=== PATIENT | female | born 1985 | race African-American/Black ===

== ENCOUNTER 2016-08-12 18:58 | Emergency (ER) | payer MEDICAID, OTHER ==
--- NOTE | 2016-08-12 19:11 | ER Document Report ---
ED Medical Screen (RME) - General Chief Complaint: Psych Problem Stated Complaint: IVC PAPER WORK Time seen by provider: 19:09 Mode of Arrival: Ambulatory Information source: Patient Notes: 31 yo female presents to ed for psych problems. Has IVC paper work that she is a danger to herself. TRAVEL OUTSIDE OF THE [place] IN LAST 30 DAYS: No - HPI Onset: Other Onset/Duration: Gradual Quality of pain: No pain Severity: None Pain Level: Denies Associated Symptoms: None Exacerbated by: Denies Relieved by: Denies Similar symptoms previously: Yes Recently seen / treated by doctor: Yes - Related Data Smoking: Cigarettes - 4-5 daily Frequency of alcohol use: None Drug Abuse: None Allergies/Adverse Reactions: lithium [[place]] Allergy (Mild, Verified 10/01/15 07:11) swollen lymph nodes fluphenazine enanthate [From Prolixin] Allergy (Verified 10/01/15 07:11) fluphenazine HCl [From Prolixin] Allergy (Verified 10/01/15 07:11) Past Medical History - Past Medical History Cardiac Medical History: Reports: Hx Hypertension Denies: Hx Heart Attack Pulmonary Medical History: Denies: Hx Asthma, Hx Bronchitis, Hx COPD, Hx Pneumonia Neurological Medical History: Denies: Hx Cerebrovascular Accident, Hx Migraine, Hx Seizures Endocrine Medical History: Denies: Hx Diabetes Mellitus Type 1, Hx Diabetes Mellitus Type 2 Renal/ Medical History: Denies: Hx Ovarian Cysts Psychiatric Medical History: Reports: Hx Anxiety, Hx Bipolar Disorder, Hx Depression, Hx Schizophrenia Past Surgical History: Reports: Hx Dilation and Curettage - Therapeutic AB, Hx Gynecologic Surgery - D&C - Immunizations Immunizations up to date: No Hx Diphtheria, Pertussis, Tetanus Vaccination: No Physical Exam - Vital signs Vitals: Temp Pulse Resp BP Pulse Ox 97.7 F 102 H 16 140/82 H 98 08/12/16 19:06 08/12/16 19:06 08/12/16 19:06 08/12/16 19:06 08/12/16 19:06 Course - Vital Signs Vital signs: Temp Pulse Resp BP Pulse Ox 97.7 F 102 H 16 140/82 H 98 08/12/16 19:06 08/12/16 19:06 08/12/16 19:06 08/12/16 19:06 08/12/16 19:06
[2016-08-12 20:02] LABS: ABSOLUTE EOSINOPHILS # (AUTO) 0.1 10^3/uL (0.0-0.6); ABSOLUTE LYMPHOCYTES (AUTO) 2.9 10^3/uL (0.5-4.7); ABSOLUTE MONOCYTES (AUTO) 0.5 10^3/uL (0.1-1.4); ABSOLUTE NEUT (AUTO) 7.8 10^3/uL (1.7-8.2); BASOPHILS % (AUTO) 0.3 % (0-2); HEMATOCRIT 35.9 % (36.0-47.0); HEMOGLOBIN 12.1 g/dL (12.0-15.5); HGB HCT DIFFERENCE 0.4; LYMPHOCYTES % (AUTO) 25.5 % (13-45); MEAN CORPUSCULAR HEMOGLOBIN 29.8 pg (27.0-33.4); MEAN CORPUSCULAR HGB CONC 33.6 g/dL (32.0-36.0); MEAN CORPUSCULAR VOLUME 89 fl (80-97); MONOCYTES % (AUTO) 4.3 % (3-13); RED BLOOD COUNT 4.06 10^6/uL (3.72-5.28); RED CELL DISTRIBUTION WIDTH 13.6 % (11.5-14.0); SEGMENTED NEUTROPHILS % (AUTO) 68.9 % (42-78); WHITE BLOOD COUNT 11.4 10^3/uL (4.0-10.5)
[2016-08-12 20:11] LABS: APPEARANCE,URINE SLIGHTLY-CLOUDY; BILIRUBIN,URINE NEGATIVE (NEGATIVE); GLUCOSE, URINE NEGATIVE (NEGATIVE); KETONES,URINE NEGATIVE (NEGATIVE); LEUKOCYTE ESTERASE,URINE TRACE (NEGATIVE); NITRITE,URINE NEGATIVE (NEGATIVE); PROTEIN,URINE NEGATIVE (NEGATIVE); URINE SPECIFIC GRAVITY 1.031
[2016-08-12 20:16] LABS: URINE BARBITURATES SCREEN NEGATIVE; URINE METHADONE SCREEN NEGATIVE; URINE PHENCYCLIDINE SCREEN NEGATIVE
[2016-08-12 20:23] LABS: ALANINE AMINOTRANSFERASE 41 U/L (9-52); ALBUMIN 4.2 g/dL (3.5-5.0); ALKALINE PHOSPHATASE 84 U/L (38-126); ANION GAP 14 (5-19); ASPARTATE AMINO TRANSFERASE 43 U/L (14-36); BILIRUBIN,TOTAL 0.5 mg/dL (0.2-1.3); BLOOD UREA NITROGEN 10 mg/dL (7-20); CALCIUM 9.6 mg/dL (8.4-10.2); CARBON DIOXIDE 23 mmol/L (22-30); CHLORIDE 104 mmol/L (98-107); CREATININE RESULT 0.71 mg/dL (0.52-1.25); GLUCOSE 87 mg/dL (75-110); POTASSIUM 3.9 mmol/L (3.6-5.0); SODIUM 140.8 mmol/L (137-145); TOTAL PROTEIN 7.5 g/dL (6.3-8.2)
[2016-08-12 20:41] LABS: ALCOHOL < 10 mg/dL (NONE DETECTED)
[2016-08-12] MEDS ORDERED: DIPHENHYDRAMINE HCL 50 MG/ML VIAL IM ONE (21:37)
[2016-08-12] MEDS ORDERED: LORAZEPAM INJ 2 MG/1 ML VIAL IM ONE (21:37)
[2016-08-12] MEDS ORDERED: HALOPERIDOL LACTATE INJ 5 MG/1 ML VIAL IM ONE (21:37)
[2016-08-12] MEDS ORDERED: ACETAMINOPHEN 325 MG TABLET PO ONE (22:22)
--- NOTE | 2016-08-13 03:11 | ER Document Report ---
ED General - General Chief Complaint: Psych Problem Stated Complaint: IVC PAPER WORK Mode of Arrival: Ambulatory Cannot obtain history due to: Uncooperative, Altered mental status Notes: Patient is a 31-year-old female who presents on IVC after apparently presenting to [facility] agitated, confused and stated that she needed to be checked out for vaginal bleeding with although patient is not . 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 She denies any suicidal or homicidal ideation. However, she does have persistent threatening posture while in the emergency department and is noted to be standing in her doorway the entire time during exam and prior to actual assessment. TRAVEL OUTSIDE OF THE [place] IN LAST 30 DAYS: No - Related Data Allergies/Adverse Reactions: lithium [Aldrich] Allergy (Mild, Verified 10/01/15 07:11) swollen lymph nodes fluphenazine enanthate [From Prolixin] Allergy (Verified 10/01/15 07:11) fluphenazine HCl [From Prolixin] Allergy (Verified 10/01/15 07:11) Home Medications: Current Home Medications Aripiprazole [Abilify Maintena] 400 mg IM ASDIR PRN 08/13/16 [History] Past Medical History - General Information source: Patient - Social History Smoking Status: Current Every Day Smoker Frequency of alcohol use: None Drug Abuse: None Lives with: Alone Family History: Reviewed & Not Pertinent Patient has suicidal ideation: No Patient has homicidal ideation: No - Past Medical History Cardiac Medical History: Reports: Hx Hypertension Denies: Hx Heart Attack Pulmonary Medical History: Denies: Hx Asthma, Hx Bronchitis, Hx COPD, Hx Pneumonia Neurological Medical History: Denies: Hx Cerebrovascular Accident, Hx Migraine, Hx Seizures Endocrine Medical History: Denies: Hx Diabetes Mellitus Type 1, Hx Diabetes Mellitus Type 2 Renal/ Medical History: Denies: Hx Ovarian Cysts Psychiatric Medical History: Reports: Hx Anxiety, Hx Bipolar Disorder, Hx Depression, Hx Schizophrenia Past Surgical History: Reports: Hx Dilation and Curettage - Therapeutic AB, Hx Gynecologic Surgery - D&C - Immunizations Immunizations up to date: No Hx Diphtheria, Pertussis, Tetanus Vaccination: No Review of Systems - Review of Systems -: Yes ROS unobtainable due to patient's medical condition Physical Exam - Vital signs Vitals: Temp Pulse Resp BP Pulse Ox 97.7 F 102 H 16 140/82 H 98 08/12/16 19:06 08/12/16 19:06 08/12/16 19:06 08/12/16 19:06 08/12/16 19:06 Interpretation: Tachycardic Notes: PHYSICAL EXAMINATION: GENERAL: Well-appearing, well-nourished and in no acute distress. HEAD: Atraumatic, normocephalic. EYES: Pupils equal round and reactive to light, extraocular movements intact, sclera anicteric, conjunctiva are normal. ENT: nares patent, oropharynx clear without exudates. Moist mucous membranes. NECK: Normal range of motion, supple without lymphadenopathy LUNGS: Breath sounds clear to auscultation bilaterally and equal. No wheezes rales or rhonchi. HEART: Regular rate and rhythm without murmurs ABDOMEN: Soft, nontender, normoactive bowel sounds. No guarding, no rebound. No masses appreciated. EXTREMITIES: Normal range of motion, no pitting or edema. No cyanosis. NEUROLOGICAL: No focal neurological deficits. Moves all extremities spontaneously and on command. PSYCH: Agitated, tangential thought process, various between being smiling and happy to crying and sobbing SKIN: Warm, Dry, normal turgor, no rashes or lesions noted. Course - Re-evaluation Re-evalutation: 08/13/16 03:12 Patient presents on IVC, acutely agitated and combative. She appears to be acutely psychotic at this time and although she initially did not present an immediate danger to herself or others, became progressively more agitated throughout her time in the emergency department, eventually requiring IM sedation for her safety as well as the safety of staff. Her medical screening exam laboratories are unremarkable. She will require assessment by psychiatry in the morning and I believe she may require hospitalization as she appears severely psychiatrically unstable at time of presentation. - Vital Signs Vital signs: Temp Pulse Resp BP Pulse Ox 97.9 F 94 14 135/77 H 99 08/12/16 20:08 08/12/16 20:08 08/12/16 20:08 08/12/16 20:08 08/12/16 20:08 - Laboratory Result Diagrams: 08/12/16 19:20 01/05/17 19:20 Laboratory results interpreted by me: 08/12/16 08/12/16 08/12/16 19:20 19:20 19:20 WBC 11.4 H Hct 35.9 L AST 43 H Urine Blood LARGE H Urine Urobilinogen 2.0 H Ur Leukocyte Esterase TRACE H Urine Ascorbic Acid 40 H Salicylates < 1.0 L Acetaminophen < 10 L - EKG Interpretation by Me Additional EKG results interpreted by me: 08/13/16 03:13 Normal sinus rhythm. Rate 98. No ST elevations or depressions. QTC 470. Discharge - Discharge Clinical Impression: Agitation Psychosis Qualifiers: Psychosis type: unspecified psychosis type Qualified Code(s): F29 - Unspecified psychosis not due to a substance or known physiological condition Condition: Fair Disposition: PSYCH HOSP/UNIT
[2016-08-13] MEDS ORDERED: ACETAMINOPHEN 325 MG TABLET PO ONE (04:36)
--- NOTE | 2016-08-13 05:09 | EKG REPORT ---
SEVERITY:- ABNORMAL ECG - SINUS RHYTHM PROBABLE LEFT ATRIAL ABNORMALITY PROBABLE LEFT VENTRICULAR HYPERTROPHY : Confirmed by: Ave Rivas 13-Aug-2016 05:09:05
--- NOTE | 2016-08-13 13:08 | ER Document Report ---
Doctor's Note Notes: 08/13/16 13:06 Patient is mildly agitated complaining that she does not need to be here and that many people over the years ago behind her back to have her brought in for psychiatric evaluations. This examiner she is denying suicidal or homicidal ideations or audiovisual hallucinations though she is Amer leading about the department staff had difficulty keeping her in her room. Patient is alert in no respiratory distress Skin warm and dry Speech clear obvious hallucinations Awaiting mental health evaluation
[2016-08-13] MEDS ORDERED: ZIPRASIDONE MESYLATE INJ/PF 20 MG SDV IM ONE (13:16)
--- NOTE | 2016-08-13 13:18 | ER Document Report ---
Doctor's Note Notes: 08/13/16 13:[address] Burger. Patient was given Geodon 20 mg IM now and An IVC papers. If she can be seen by her outpatient medical health provider today and she is calm or she can be discharged there today otherwise she will be kept here overnight as she is demonstrating some flight of ideas and impaired judgment
[2016-08-13] MEDS ORDERED: IBUPROFEN 800 MG TABLET PO ONE (17:17)
[2016-08-13 17:59] VITALS: BP 140/92
== END 2016-08-13 19:04 | disposition home or self-care (01) ==
LOC: ER 18:58
DX: F29 Unspecified psychosis not due to a substance or known physiological condition (principal); R45.1 Restlessness and agitation
CPT/HCPCS: 93005; 99285; 96372; 36415; 80307 ×4; 84702; 85025; 80053; 81001; 93010; J3490; J1200; J1630; J2060

== ENCOUNTER 2016-08-15 21:54 | Emergency (ER) | payer MEDICAID ==
[2016-08-15] MEDS ORDERED: HALOPERIDOL LACTATE INJ 5 MG/1 ML VIAL IM ONE (22:24)
[2016-08-15] MEDS ORDERED: LORAZEPAM INJ 2 MG/1 ML VIAL IM ONE (22:24)
[2016-08-15] MEDS ORDERED: DIPHENHYDRAMINE HCL 50 MG/ML VIAL IM ONE (22:24)
--- NOTE | 2016-08-15 22:25 | ER Document Report ---
ED General - General Chief Complaint: Psych Problem Stated Complaint: IVC WITH PAPERS Cannot obtain history due to: Mentally challenged, Uncooperative Notes: Patient is a 31-year-old female known to this emergency department who presents on IVC paperwork with the police. She is acutely psychotic, yelling at staff and security officers. Very agitated. She is an immediate danger to herself and staff and will require administration of IM sedation for her safety as well as the safety of staff. No additional meaningful history can be obtained from the patient although IVC paperwork filled out by her mother does note behaviors very similar for which patient was seen just several days ago including grandiose ideas, agitation, dangerous behavior, and paranoia. TRAVEL OUTSIDE OF THE [place] IN LAST 30 DAYS: No - Related Data Allergies/Adverse Reactions: lithium [[place]] Allergy (Mild, Verified 10/01/15 07:11) swollen lymph nodes fluphenazine enanthate [From Prolixin] Allergy (Verified 10/01/15 07:11) fluphenazine HCl [From Prolixin] Allergy (Verified 10/01/15 07:11) Past Medical History - General Information source: Law Enforcement - Social History Smoking Status: Never Smoker Frequency of alcohol use: None Drug Abuse: None Family History: Reviewed & Not Pertinent - Past Medical History Cardiac Medical History: Reports: Hx Hypertension Denies: Hx Heart Attack Pulmonary Medical History: Denies: Hx Asthma, Hx Bronchitis, Hx COPD, Hx Pneumonia Neurological Medical History: Denies: Hx Cerebrovascular Accident, Hx Migraine, Hx Seizures Endocrine Medical History: Denies: Hx Diabetes Mellitus Type 1, Hx Diabetes Mellitus Type 2 Renal/ Medical History: Denies: Hx Ovarian Cysts Psychiatric Medical History: Reports: Hx Anxiety, Hx Bipolar Disorder, Hx Depression, Hx Schizophrenia Past Surgical History: Reports: Hx Dilation and Curettage - Therapeutic AB, Hx Gynecologic Surgery - D&C - Immunizations Immunizations up to date: No Hx Diphtheria, Pertussis, Tetanus Vaccination: No Review of Systems - Review of Systems -: Yes ROS unobtainable due to patient's medical condition Physical Exam - Vital signs Vitals: Pulse Resp BP Pulse Ox 108 H 18 145/88 H 96 08/15/16 22:50 08/15/16 22:50 08/15/16 22:50 08/15/16 22:50 Interpretation: Tachycardic Notes: PHYSICAL EXAMINATION: Exam limited due to patient's behavior PHYSICAL EXAMINATION: GENERAL: Agitated and combative HEAD: Atraumatic, normocephalic. EYES: sclera anicteric, conjunctiva are normal. ENT: Moist mucous membranes. NECK: Normal range of motion LUNGS: Normal work of breathing HEART: 2+ radial pulses bilaterally EXTREMITIES: no pitting or edema. No cyanosis. NEUROLOGICAL: No focal neurological deficits. Moves all extremities spontaneously PSYCH: Yelling, hyperverbal, aggressive SKIN: Warm, Dry, normal turgor, no rashes or lesions noted. Course - Re-evaluation Re-evalutation: 08/16/16 04:25 Patient presents with symptoms consistent with acute psychosis similar to her prior presentations. It is difficult to obtain an appropriate history and the patient due to her psychiatric presentation. A basic medical screening exam does not demonstrate any acute findings and her laboratories are all likewise unremarkable. EKG unchanged from prior. IVC paperwork is already in place. She is medically cleared for evaluation by psychiatry in the morning. - Vital Signs Vital signs: Temp Pulse Resp BP Pulse Ox 108 H 18 145/88 H 96 08/15/16 22:50 08/15/16 22:50 08/15/16 22:50 08/15/16 22:50 - Laboratory Result Diagrams: 08/15/16 22:40 08/15/16 22:40 Laboratory results interpreted by me: 08/15/16 08/15/16 08/15/16 22:40 22:40 22:51 WBC 13.2 H Absolute Neutrophils 8.9 H Calcium 10.3 H AST 73 H Urine Blood SMALL H Salicylates < 1.0 L Acetaminophen < 10 L - EKG Interpretation by Me Additional EKG results interpreted by me: 08/16/16 04:26 Sinus tachycardia. Rate 109. No ST elevations or depressions. QTC 464. Discharge - Discharge Clinical Impression: Agitation Psychosis Qualifiers: Psychosis type: unspecified psychosis type Qualified Code(s): F29 - Unspecified psychosis not due to a substance or known physiological condition Condition: Fair Disposition: PSYCH HOSP/UNIT
[2016-08-15] MEDS ORDERED: HALOPERIDOL LACTATE INJ 5 MG/1 ML VIAL ONE (22:27)
[2016-08-15 22:56] LABS: ABSOLUTE BASOPHILS # (AUTO) 0.1 10^3/uL (0.0-0.2); ABSOLUTE EOSINOPHILS # (AUTO) 0.3 10^3/uL (0.0-0.6); ABSOLUTE LYMPHOCYTES (AUTO) 3.4 10^3/uL (0.5-4.7); ABSOLUTE MONOCYTES (AUTO) 0.6 10^3/uL (0.1-1.4); ABSOLUTE NEUT (AUTO) 8.9 10^3/uL (1.7-8.2); BASOPHILS % (AUTO) 0.5 % (0-2); HEMATOCRIT 36.9 % (36.0-47.0); HEMOGLOBIN 12.3 g/dL (12.0-15.5); LYMPHOCYTES % (AUTO) 25.9 % (13-45); MEAN CORPUSCULAR HEMOGLOBIN 29.3 pg (27.0-33.4); MEAN CORPUSCULAR HGB CONC 33.2 g/dL (32.0-36.0); MEAN CORPUSCULAR VOLUME 88 fl (80-97); MONOCYTES % (AUTO) 4.5 % (3-13); RED BLOOD COUNT 4.18 10^6/uL (3.72-5.28); RED CELL DISTRIBUTION WIDTH 13.4 % (11.5-14.0); SEGMENTED NEUTROPHILS % (AUTO) 67.1 % (42-78); WHITE BLOOD COUNT 13.2 10^3/uL (4.0-10.5)
[2016-08-15 23:07] LABS: APPEARANCE,URINE CLEAR; BILIRUBIN,URINE NEGATIVE (NEGATIVE); GLUCOSE, URINE NEGATIVE (NEGATIVE); KETONES,URINE NEGATIVE (NEGATIVE); LEUKOCYTE ESTERASE,URINE NEGATIVE (NEGATIVE); NITRITE,URINE NEGATIVE (NEGATIVE); PROTEIN,URINE NEGATIVE (NEGATIVE); URINE SPECIFIC GRAVITY 1.005; UROBILINOGEN,URINE NEGATIVE mg/dL (<2.0)
[2016-08-15 23:14] LABS: ALANINE AMINOTRANSFERASE 41 U/L (9-52); ALBUMIN 4.4 g/dL (3.5-5.0); ALCOHOL < 10 mg/dL (NONE DETECTED); ALKALINE PHOSPHATASE 82 U/L (38-126); ANION GAP 13 (5-19); ASPARTATE AMINO TRANSFERASE 73 U/L (14-36); BILIRUBIN,TOTAL 0.6 mg/dL (0.2-1.3); BLOOD UREA NITROGEN 12 mg/dL (7-20); CALCIUM 10.3 mg/dL (8.4-10.2); CARBON DIOXIDE 27 mmol/L (22-30); CHLORIDE 102 mmol/L (98-107); CREATININE RESULT 0.84 mg/dL (0.52-1.25); GLUCOSE 90 mg/dL (75-110); POTASSIUM 4.5 mmol/L (3.6-5.0); SODIUM 141.6 mmol/L (137-145); TOTAL PROTEIN 7.8 g/dL (6.3-8.2)
--- NOTE | 2016-08-16 08:53 | EKG REPORT ---
SEVERITY:- ABNORMAL ECG - SINUS TACHYCARDIA CONSIDER LEFT VENTRICULAR HYPERTROPHY : Confirmed by: Ave Rivas 16-Aug-2016 08:52:05
--- NOTE | 2016-08-16 09:23 | ER Document Report ---
Doctor's Note Notes: 08/16/16 09:23 Lab work vital signs have been reviewed. At this time patient is currently stable with no overnight events requiring no intervention at this time. Patient stable for transfer or other disposition
--- NOTE | 2016-08-16 11:13 | PSYCHOLOGICAL NOTE ---
Psych Note - Psych Note Psych Note: Patient states her mom took IVC out on her because she said that she was seeing angels and demons. She continued to disclose that this is not true. She continued to state that she can look into the eyes the pupils see if they're good or bad however never said that she is seeing angels and demons. She continued to disclose that she opened up to her parents and told them the truth and they could not take what she said. Patient will not elaborate on this. Patient continues to disclose feeling uncomfortable because being IVC in the hospital makes her feel like she is in snf; "this is insanity..... I can't keep doing this this place is insanity." Patient displayed extreme duress when told she would not be able to leave. She stated "you've broken my heart and rode my life. She continued to explain that she has plans and were trying to stop her from recording her song with "[place]." She continued to state that she just has to record this one song. 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 And explained that she is not manic she was misdiagnosed as bipolar in her 20s and she is just angry. Clinician spoke with Analia of [facility], she disclosed that the patient has been displaying hypomanic behavior since the end of May. She continued to disclose that previous to that they are actually in the process of ending services because she was stable and telling the provider that she did not want to continue engaging in services. She notes that the patient at that time appeared to be depressed and flat affect and would sit in the dark and her home however was caring for her child and engaging with her mother. She continues state she is concerned because the behavior the patient has been to displaying Clinician spoke with Freddie, Patient's DSS worker, she states she has noted bizarre behavior from patient. Stating patient gets upset and strips naked in public. She continued to state that while patient is constantly saying she wants her child, she never visits her mother to see if her. She continued to state that the patient is very transient and has not been able to do frequent visits with her because the patient just takes off. She continued disclosed the patient is adamant that she is going to record a record album and that the patient saying for her; DSS worker notes patient is not musically inclined. Patient is alert and orientated to person place time and circumstance. Mood is elevated with irritable affect. Patient denies suicidal and homicidal ideation. Patient denies auditory and visual hallucinations; mixed delusions of grandeur and religiosity are noted. Thought processes is disorganized. Conversational speech is pressured and at times loud. Eye contact was poor; patient has difficulty keeping her eyes open and is swaying on feet. Intellectual abilities appear to be within low average range. Attention and concentration are fair. Insight, judgment, impulse control are historically poor. 296.80 (F31.9) Unspecified Bipolar and Disorder Patient's presenting symptoms are congruent with not any bipolar disorder in cause clinically significant concerns in all 4 domains of her life. At this time, in this setting (ED) there is not enough information known to make you more specific diagnosis. Impression\\plan: Patient is recommended to continue under IVC and seek placement for inpatient treatment. Patient is presenting progressively worse. While her delusions do not cause harm to self or others the patient is demonstrating decreased ability for cognitive function. Insight, judgment, impulse control are currently impaired and she is a danger to herself. Dr. Burger was consulted on this patient; attending physician is in agreement with recommendations and disposition.
[2016-08-16] MEDS ORDERED: OLANZAPINE 5 MG TAB.RAPDIS PO SCH (11:45)
[2016-08-16] MEDS ORDERED: OLANZAPINE 5 MG TAB.RAPDIS PO ONE (11:45)
[2016-08-16] MEDS ORDERED: ARIPIPRAZOLE 5 MG TABLET PO SCH (12:00)
[2016-08-16] MEDS ORDERED: ARIPIPRAZOLE 5 MG TABLET PO ONE (12:00)
[2016-08-16] MEDS: ZIPRASIDONE HCL 20 MG CAPSULE PO SCH ×3 (12:22→23:03)
[2016-08-16] MEDS: ARIPIPRAZOLE 5 MG TABLET PO SCH (17:37)
[2016-08-16] MEDS: OLANZAPINE 5 MG TAB.RAPDIS PO SCH (17:38)
[2016-08-16] MEDS ORDERED: BENZTROPINE MESYLATE 1 MG TABLET PO SCH (22:00)
[2016-08-16] MEDS ORDERED: ACETAMINOPHEN 325 MG TABLET ONE (23:24)
[2016-08-17] MEDS ORDERED: IBUPROFEN 600 MG TABLET PO ONE (06:10)
[2016-08-17] MEDS: ZIPRASIDONE HCL 20 MG CAPSULE PO SCH ×2 (06:15→13:20)
[2016-08-17] MEDS: ARIPIPRAZOLE 5 MG TABLET PO SCH (09:55)
[2016-08-17] MEDS: OLANZAPINE 5 MG TAB.RAPDIS PO SCH (09:55)
--- NOTE | 2016-08-17 10:31 | ER Document Report ---
Doctor's Note Notes: 08/17/16 10:29 Rounds: Chart reviewed and patient interviewed. Patient has a history of bipolar disorder. She presented to this emergency department 2 days ago in an acute psychotic state she was very agitated. Patient is currently controlled, but hyper and anxious. Vital signs have been normal. Labs have been normal with the exception of a white count of 13,200, for which the patient has no symptoms of any infections to explain this probably clinically insignificant minor leukocytosis. Patient says that she routinely gets an injection of Abilify once a month and her most recent was on July 24. She says that's the only mental health medications she takes. We have started her on Geodon, Abilify, and Zyprexa. Patient appears to be medically stable for transfer or discharge. Martha Dunaway M.D.
[2016-08-17 15:11] VITALS: BP 134/79
--- NOTE | 2016-08-17 16:01 | PSYCHOLOGICAL NOTE ---
Psych Note - Psych Note Psych Note: Conducted check in with patient who is a 31 year old female under IVC at [facility] ED for bizarre/manic episode. Note, patient is known to this clinician and this Department for numerous prior episodes of similar etiology. Patient today was observed making numerous phone calls, often trailing off topic and demonstrating emotional lability. Patient was argumentative with both her father and mother (separately) on the phone and was asked to discontinue the conversations. Patient did comply with redirection. Patient became tearful during conversation stating being here (in the ED) is preventing her from doing what she needs to do. 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 Patient becomes more tearful and states she will not work with anyone in [place] on an album because they just take advantage of her for her talent. Patient then discusses her daughter, her need for reliable transportation, and wanting to submit an application for an apartment. Patient discussed her services with [facility] and provides consent to talk with her team. Patient advised she was accepted to [facility], per the IVC process here at the ED of referring out for placements when under IVC. This appears to have upset the patient. She was overheard in her room crying and yelling. Patient was A&O. Mood was manic with changing affects (tearful, smiling, etc). Patient denies suicidal/homicidal ideations, intent, plan, or means. Patient denies A/V H; delusions noted. Thought processes weer disorganized. Conversational speech was labile for prosody and tangential. Intellectual abilities were estimated within average range. Attention and focus were poor. Insight, judgment, and impulse control were poor. 296.80 (F31.9) Unspecified Bipolar and Disorder Patient's presenting symptoms are congruent with not any bipolar disorder in cause clinically significant concerns in all 4 domains of her life. At this time, in this setting (ED) there is not enough information known to make you more specific diagnosis. Patient is recommended to continue under IVC and follow through with placement at [facility]. I consulted with Dr. Burger in regards to the care and management of this patient. ED MD is in agreement with disposition and recommendations.
[2016-08-17 16:20] LABS: URINE BARBITURATES SCREEN NEGATIVE; URINE METHADONE SCREEN NEGATIVE; URINE PHENCYCLIDINE SCREEN NEGATIVE
== END 2016-08-17 15:14 ==
LOC: ER 21:54
DX: F20.9 Schizophrenia, unspecified (principal); F31.9 Bipolar disorder, unspecified; I10 Essential (primary) hypertension; R00.0 Tachycardia, unspecified; Z88.8 Allergy status to other drugs, medicaments and biological substances; Z79.899 Other long term (current) drug therapy
CPT/HCPCS: 93005; 99285; 96372; 36415; 80307 ×4; 84703; 85025; 80053; 81001; 93010; J3490 ×6; J1200; J1630; J2060

== ENCOUNTER 2017-06-02 13:02 | Emergency (ER) | payer MEDICAID, OTHER ==
[2017-06-02 14:11] VITALS: BP 142/79
--- NOTE | 2017-06-02 14:11 | ER Document Report ---
ED GI/ - General Chief Complaint: STD Exposure Stated Complaint: STD CHECK Time Seen by Provider: 06/02/17 13:52 Mode of Arrival: Ambulatory Information source: Patient Notes: 32-year-old female presents to ED for concern of STD. She states that she was exposed about a week ago and she now has a vaginal discharge. She states her friend told her that they were positive for trichomonas. TRAVEL OUTSIDE OF THE [place] IN LAST 30 DAYS: No - HPI Patient complains to provider of: Vaginal discharge Onset: Just prior to arrival Timing/Duration: Gradual Quality of pain: No pain Severity in ED: None Pain Level: Denies Vaginal bleeding (Compared to normal period): None Associated symptoms: Vaginal discharge Exacerbated by: Denies Relieved by: Denies Similar symptoms previously: Yes Recently seen / treated by doctor: No - Related Data Allergies/Adverse Reactions: lithium [[place]] Allergy (Mild, Verified 06/02/17 13:05) swollen lymph nodes fluphenazine enanthate [From Prolixin] Allergy (Verified 06/02/17 13:05) fluphenazine HCl [From Prolixin] Allergy (Verified 06/02/17 13:05) Past Medical History - General Information source: Patient - Social History Smoking Status: Never Smoker Cigarette use (# per day): No Chew tobacco use (# tins/day): No Smoking Education Provided: No Frequency of alcohol use: None Drug Abuse: None Lives with: Family Family History: Reviewed & Not Pertinent Patient has suicidal ideation: No Patient has homicidal ideation: No - Past Medical History Cardiac Medical History: Reports: Hx Hypertension Pulmonary Medical History: Reports: None EENT Medical History: Reports: None Neurological Medical History: Reports: None Endocrine Medical History: Reports: None Renal/ Medical History: Reports: None Malignancy Medical History: Reports: None GI Medical History: Reports: None Musculoskeltal Medical History: Reports None Skin Medical History: Reports None Psychiatric Medical History: Reports: Hx Anxiety, Hx Bipolar Disorder, Hx Depression, Hx Schizophrenia Traumatic Medical History: Reports: None Infectious Medical History: Reports: None Past Surgical History: Reports: Hx Dilation and Curettage - Therapeutic AB - Immunizations Immunizations up to date: No Hx Diphtheria, Pertussis, Tetanus Vaccination: No Review of Systems - Review of Systems Constitutional: No symptoms reported EENT: No symptoms reported Cardiovascular: No symptoms reported Respiratory: No symptoms reported Gastrointestinal: No symptoms reported Genitourinary: No symptoms reported Female Genitourinary: Vaginal discharge Musculoskeletal: No symptoms reported Skin: No symptoms reported Hematologic/Lymphatic: No symptoms reported Neurological/Psychological: No symptoms reported -: Yes All other systems reviewed and negative Physical Exam - Vital signs Vitals: Temp Pulse Resp BP Pulse Ox 98.0 F 84 18 142/79 H 98 06/02/17 13:05 06/02/17 13:05 06/02/17 13:05 06/02/17 13:05 06/02/17 13:05 Interpretation: Normal - General General appearance: Appears well, Alert - HEENT Head: Normocephalic, Atraumatic Eyes: Normal Pupils: PERRL - Respiratory Respiratory status: No respiratory distress Chest status: Nontender Breath sounds: Normal Chest palpation: Normal - Cardiovascular Rhythm: Regular Heart sounds: Normal auscultation Murmur: No - Abdominal Inspection: Normal Distension: No distension Bowel sounds: Normal Tenderness: Nontender Organomegaly: No organomegaly - Genitourinary External exam: Normal Speculum exam: Cervix open, Vaginal discharge Vaginal bleeding: None Bimanuel exam: Normal - Back Back: Normal, Nontender - Extremities General upper extremity: Normal inspection, Nontender, Normal color, Normal ROM , Normal temperature General lower extremity: Normal inspection, Nontender, Normal color, Normal ROM , Normal temperature, Normal weight bearing. No: Maksim's sign - Neurological Neuro grossly intact: Yes Cognition: Normal Orientation: AAOx4 [place] Coma Scale Eye Opening: Spontaneous [place] Coma Scale Verbal: Oriented [place] Coma Scale Motor: Obeys Commands Valeri Coma Scale Total: 15 Speech: Normal Motor strength normal: LUE, RUE, LLE, RLE Sensory: Normal - Psychological Associated symptoms: Normal affect, Normal mood - Skin Skin Temperature: Warm Skin Moisture: Dry Skin Color: Normal Course - Re-evaluation Re-evalutation: 06/02/17 16:06 Patient treated with Rocephin and azithromycin as she was not going to wait for the results of the GC and chlamydia. Her trichomonas test was negative. After she left her GC and chlamydia test have come back as negative. Patient to follow-up with her primary doctor. - Vital Signs Vital signs: Temp Pulse Resp BP Pulse Ox 98.0 F 84 18 142/79 H 98 06/02/17 13:05 06/02/17 13:05 06/02/17 13:05 06/02/17 13:05 06/02/17 13:05 - Laboratory Laboratory results interpreted by me: 06/02/17 14:00 Urine Blood SMALL H Discharge - Discharge Clinical Impression: STD exposure Vaginitis Qualifiers: Chronicity: acute Qualified Code(s): N76.0 - Acute vaginitis Condition: Stable Disposition: HOME, SELF-CARE Additional Instructions: You is seen today for vaginal discharge with exposure to trichomonas. You trichomonas test was negative. The gonorrhea and Chlamydia tests will not be resulted for another couple hours. You will be treated with Rocephin and azithromycin to cover these. You can call in 2 hours for the results of these to test as we discussed at [phone] CEPHALOSPORINS: An antibiotic of the cephalosporin class has been prescribed. This type of antibiotic covers a wide variety of infections, including those of the skin, lungs, middle ear, and urinary tract. This antibiotic is somewhat similar to the penicillin family. In rare cases , a person who is allergic to penicillin will also be allergic to this medication. If you have had a severe allergic reaction to penicillin, and have not taken this antibiotic since that time, notify your doctor. Antibiotics which cover many germs ("broad spectrum" antibiotics) are more likely to cause diarrhea or "yeast" infections. Women prone to vaginal yeast problems may suffer an attack after taking this antibiotic. In infants, oral thrush (white spots "stuck" on the cheek) or yeast diaper rash may result. See your doctor if these problems occur. Call the doctor at once if you develop hives, itching, shortness of breath , or lightheadedness. AZITHROMYCIN: Azithromycin (Zithromax) is a broad spectrum antibiotic in the same class as erythromycin. It can treat a variety of bacterial infections, but is most frequently used for respiratory infections. Azithromycin is extremely long-lasting. It accumulates in body tissues and continues to kill bacteria for many days. In order to improve absorption, Azithromycin should be taken at least one hour before or two hours after a meal. It does not have the same strong tendency to upset the stomach as erythromycin and is usually very well tolerated. Patients who have had a rash or other true allergic reactions to erythromycin should not take this medication. Call if you develop gastrointestinal distress, severe diarrhea, rash, hives, itching, or shortness of breath. FOLLOW-UP CARE: If you have been referred to a physician for follow-up care, call the physician s office for an appointment as you were instructed or within the next two days. If you experience worsening or a significant change in your symptoms, notify the physician immediately or return to the Emergency Department at any time for re-evaluation. Referrals: LYLE BURCIAGA, [Primary Care Provider] - Follow up as needed
[2017-06-02 14:28] LABS: APPEARANCE,URINE CLEAR; BILIRUBIN,URINE NEGATIVE (NEGATIVE); GLUCOSE, URINE NEGATIVE (NEGATIVE); KETONES,URINE NEGATIVE (NEGATIVE); LEUKOCYTE ESTERASE,URINE NEGATIVE (NEGATIVE); NITRITE,URINE NEGATIVE (NEGATIVE); PROTEIN,URINE NEGATIVE (NEGATIVE); URINE SPECIFIC GRAVITY 1.026; UROBILINOGEN,URINE NEGATIVE mg/dL (<2.0)
[2017-06-02] MEDS ORDERED: LIDOCAINE 1% INJ-PF (10 MG/ML) 30 ML SDV INFIL ONE (14:53)
[2017-06-02] MEDS ORDERED: AZITHROMYCIN 250 MG TABLET PO ONE (14:53)
[2017-06-02] MEDS ORDERED: CEFTRIAXONE INJ 250 MG VIAL IM ONE (14:53)
[2017-06-02 15:45] LABS: CHLAM PCR NOT DETECTED (NOT DETECT)
== END 2017-06-02 15:25 | disposition home or self-care (01) ==
LOC: ER 13:02
DX: Z20.2 Contact with and (suspected) exposure to infections with a predominantly sexual mode of transmission (principal); N76.0 Acute vaginitis; I10 Essential (primary) hypertension; Z88.8 Allergy status to other drugs, medicaments and biological substances
CPT/HCPCS: 99283; 96372; 87210; 81025; 81001; 87491; 87591; Q0144; J3490; J0696

== ENCOUNTER 2018-03-03 18:23 | Emergency (ER) | payer MEDICAID ==
[2018-03-03] MEDS ORDERED: CLINDAMYCIN 600 MG/D5W RTU 600 MG/50 ML RTUPB IV ONE (18:55)
[2018-03-03] MEDS ORDERED: NORMAL SALINE 1000 ML 1,000 ML IV ONE (18:55)
[2018-03-03] MEDS ORDERED: DEXAMETHASONE SOD PHOS INJ 10 MG/1 ML VIAL PO ONE (18:56)
--- NOTE | 2018-03-03 19:38 | ER Document Report ---
ED ENT - General Chief Complaint: Sore Throat Stated Complaint: SORE THROAT Time Seen by Provider: 03/03/18 18:55 Mode of Arrival: Ambulatory Information source: Patient Notes: 32-year-old with severe sore throat and trouble swallowing due to pain, she started having fever and chills yesterday. No nausea vomiting or diarrhea. Hot potato voice during interview. TRAVEL OUTSIDE OF THE [place] IN LAST 30 DAYS: No - Related Data Allergies/Adverse Reactions: lithium [[place]] Allergy (Mild, Verified 06/02/17 13:05) swollen lymph nodes fluphenazine enanthate [From Prolixin] Allergy (Verified 06/02/17 13:05) fluphenazine HCl [From Prolixin] Allergy (Verified 06/02/17 13:05) Past Medical History - General Information source: Patient - Social History Smoking Status: Never Smoker Frequency of alcohol use: None Drug Abuse: None Lives with: Family Family History: Reviewed & Not Pertinent Patient has suicidal ideation: No Patient has homicidal ideation: No - Past Medical History Cardiac Medical History: Reports: Hx Hypertension Psychiatric Medical History: Reports: Hx Anxiety, Hx Bipolar Disorder, Hx Depression, Hx Schizophrenia Past Surgical History: Reports: Hx Dilation and Curettage - Therapeutic AB, Hx Gynecologic Surgery - D&C - Immunizations Immunizations up to date: No Hx Diphtheria, Pertussis, Tetanus Vaccination: No Review of Systems - Review of Systems Constitutional: See HPI EENT: See HPI Cardiovascular: No symptoms reported Respiratory: No symptoms reported Gastrointestinal: No symptoms reported Genitourinary: No symptoms reported Female Genitourinary: No symptoms reported Musculoskeletal: No symptoms reported Skin: No symptoms reported Hematologic/Lymphatic: No symptoms reported Neurological/Psychological: No symptoms reported Physical Exam - Vital signs Vitals: Temp Pulse Resp BP Pulse Ox 98.3 F 89 16 146/95 H 100 03/03/18 18:35 03/03/18 18:35 03/03/18 18:35 03/03/18 18:35 03/03/18 18:35 Interpretation: Normal - General General appearance: Appears well, Alert In distress: None - HEENT Head: Normocephalic, Atraumatic Eyes: Normal Conjunctiva: Normal Pupils: PERRL Pharynx: Tonsillar hypertrophy, Other - Exudative bilateral tonsils with red soft palate and bulging of the left soft palate which can be cellulitis versus possible abscess.. No: Uvular edema Neck: Lymphadenopathy - Anterior bilateral, Supple. No: Thyromegally - Respiratory Respiratory status: No respiratory distress Chest status: Nontender Breath sounds: Normal Chest palpation: Normal - Cardiovascular Rhythm: Regular Heart sounds: Normal auscultation Murmur: No - Abdominal Inspection: Normal Distension: No distension Bowel sounds: Normal Tenderness: Nontender Organomegaly: No organomegaly. No: Hepatomegaly, Splenomegaly - Back Back: Normal, Nontender - Extremities General upper extremity: Normal inspection, Nontender, Normal color, Normal ROM , Normal temperature General lower extremity: Normal inspection, Nontender, Normal color, Normal ROM , Normal temperature, Normal weight bearing. No: Maksim's sign - Neurological Neuro grossly intact: Yes Cognition: Normal Orientation: AAOx4 [place] Coma Scale Eye Opening: Spontaneous Valeri Coma Scale Verbal: Oriented [place] Coma Scale Motor: Obeys Commands [place] Coma Scale Total: 15 Speech: Normal Motor strength normal: LUE, RUE, LLE, RLE Sensory: Normal - Psychological Associated symptoms: Normal affect, Normal mood - Skin Skin Temperature: Warm Skin Moisture: Dry Skin Color: Normal Skin irregularity: negative: Rash Course - Re-evaluation Re-evalutation: 03/03/18 19:38 Patient denies she ended her period 3 days ago. The rapid strep is negative, cx pending 03/03/18 20:07 CT scan is negative for fluid collection or signs of abscess there is multiple lymph nodes per rad. 03/03/18 20:09 I thought I had ordered a Monospot initially but I just added it now. I am giving her something for pain and make sure she can drink fluids. She has a ride home. - Vital Signs Vital signs: Temp Pulse Resp BP Pulse Ox 98.3 F 89 16 146/95 H 100 03/03/18 18:35 03/03/18 18:35 03/03/18 18:35 03/03/18 18:35 03/03/18 18:35 - Laboratory Result Diagrams: 03/03/18 19:22 03/03/18 19:22 Laboratory results interpreted by me: 03/03/18 19:22 WBC 18.4 H Seg Neutrophils % 82.9 H Lymphocytes % 12.3 L Absolute Neutrophils 15.3 H Discharge - Discharge Clinical Impression: Exudative tonsillitis Condition: Good Disposition: HOME, SELF-CARE Instructions: Acetaminophen, Clindamycin ([facility]), Corticosteroid Medication ([facility]) , Ibuprofen (General) ([facility]), Sore Throat ([facility]), Tonsillitis ([facility]) Additional Instructions: Drink plenty of fluids Return to the emergency room with symptoms worsen Clindamycin for 10 days Throat culture and Monospot are pending Tylenol up to 4000 mg per day for pain Motrin 600 mg 3 times a day for inflammation Prescriptions: Ibuprofen [Motrin 600 mg Tablet] 600 mg PO Q8HP PRN #30 tablet PRN Reason: Clindamycin HCl [Cleocin 150 mg Capsule] 300 mg PO TID #60 capsule Forms: Return to Work Referrals: LYLE BURCIAGA DO [NO LOCAL MD] - 03/06/18
[2018-03-03 19:50] LABS: ABSOLUTE EOSINOPHILS # (AUTO) 0.2 10^3/uL (0.0-0.6); ABSOLUTE LYMPHOCYTES (AUTO) 2.3 10^3/uL (0.5-4.7); ABSOLUTE MONOCYTES (AUTO) 0.7 10^3/uL (0.1-1.4); ABSOLUTE NEUT (AUTO) 15.3 10^3/uL (1.7-8.2); BASOPHILS % (AUTO) 0.3 % (0-2); EOSINOPHILS % (AUTO) 0.9 % (0-6); HEMATOCRIT 36.4 % (36.0-47.0); HEMOGLOBIN 12.6 g/dL (12.0-15.5); LYMPHOCYTES % (AUTO) 12.3 % (13-45); MEAN CORPUSCULAR HEMOGLOBIN 31.6 pg (27.0-33.4); MEAN CORPUSCULAR HGB CONC 34.6 g/dL (32.0-36.0); MEAN CORPUSCULAR VOLUME 91 fl (80-97); MONOCYTES % (AUTO) 3.6 % (3-13); PLATELET COUNT 339 10^3/uL (150-450); RED BLOOD COUNT 3.98 10^6/uL (3.72-5.28); RED CELL DISTRIBUTION WIDTH 13.3 % (11.5-14.0); SEGMENTED NEUTROPHILS % (AUTO) 82.9 % (42-78); TOTAL CELLS COUNTED % (AUTO) 100 %; WHITE BLOOD COUNT 18.4 10^3/uL (4.0-10.5)
--- NOTE | 2018-03-03 20:01 | RADIOLOGY REPORT (SQ) ---
EXAM DESCRIPTION: CT SOFT TISSUE NECK WITH COMPLETED DATE/TIME: 03/03/2018 7:48 pm REASON FOR STUDY: possible peritonsillar abscess COMPARISON: None. TECHNIQUE: Post IV contrasted scanning from skull base through lung apices with review of bone, soft tissue and lung windows. Reconstructed coronal and sagittal MPR images reviewed. All images stored on PACS. All CT scanners at this facility use dose modulation, iterative reconstruction, and/or weight based d osing when appropriate to reduce radiation dose to as low as reasonably achievable (ALARA). [facility]: Dose Right [facility]: CareDose [facility]: Dose Right [facility]: Teradose 4D [facility]: [email or web address] CONTRAST TYPE AND DOSE: contrast/concentration: Isovue 370.00 mg/ml; Total Contrast Delivered: 75.0 ml; Total Saline Delivered: 55.0 ml RENAL FUNCTION: None required. The patient is less than 50 years old. RADIATION DOSE: . LIMITATIONS: None. FINDINGS: SKULL BASE: Intact. MAJOR SALIVARY GLANDS: No solid or cystic masses. No inflammatory changes. LYMPHADENOPATHY: Multiple prominent lymph nodes involving the anterior cervical chains bilaterally. MUCOSAL MASSES OR ASYMMETRY: The tonsillar pillars appear symmetrically prominent. No mucosal masses or asymmetry. LARYNX/CORDS: No abnormal findings. VASCULAR STRUCTURES: The major vessels are patent. LUNG APICES: Clear. BONES: Intact. THYROID: Normal size. No masses. PARANASAL SINUSES: Clear. OTHER: No other significant finding. IMPRESSION: Multiple prominent lymph nodes involving the bilateral anterior cervical chains. No bentley dence of mucosal or peritonsillar fluid collection or abscess. TECHNICAL DOCUMENTATION: JOB ID: [id number] Quality ID # [id number]: Final reports with documentation of one or more dose reduction techniques (e.g., Au tomated exposure control, adjustment of the mA and/or kV according to patient size, use of iterative reconstruction technique) 2010 [employer]- All Rights Reserved Reading location - IP/workstation name: [email or web address]
[2018-03-03] MEDS ORDERED: ONDANSETRON 4 MG TAB.RAPDIS PO ONE (20:07)
[2018-03-03] MEDS ORDERED: MORPHINE SULFATE 10 MG/ML INJ IV ONE (20:07)
[2018-03-03 20:11] LABS: ALANINE AMINOTRANSFERASE 26 U/L (9-52); ALBUMIN 3.7 g/dL (3.5-5.0); ALKALINE PHOSPHATASE 89 U/L (38-126); ANION GAP 12 (5-19); ASPARTATE AMINO TRANSFERASE 27 U/L (14-36); BILIRUBIN,DIRECT 0.3 mg/dL (0.0-0.4); BILIRUBIN,TOTAL 0.5 mg/dL (0.2-1.3); BLOOD UREA NITROGEN 10 mg/dL (7-20); CALCIUM 9.1 mg/dL (8.4-10.2); CARBON DIOXIDE 26 mmol/L (22-30); CHLORIDE 104 mmol/L (98-107); GLUCOSE 89 mg/dL (75-110); POTASSIUM 4.4 mmol/L (3.6-5.0); SODIUM 142.1 mmol/L (137-145); TOTAL PROTEIN 7.3 g/dL (6.3-8.2)
[2018-03-03 21:37] VITALS: BP 160/102
== END 2018-03-03 21:36 | disposition home or self-care (01) ==
LOC: ER 18:23
DX: J03.90 Acute tonsillitis, unspecified (principal); R13.10 Dysphagia, unspecified; I10 Essential (primary) hypertension; Z88.8 Allergy status to other drugs, medicaments and biological substances
CPT/HCPCS: 99284; 96375; 96365; 36415; 87070; 87880; 85025; 87077; 86308; 80053; 70491; S0077; S0119; J2270; J7030; J1100

== ENCOUNTER 2018-04-18 17:10 | Emergency (ER) | payer MEDICAID ==
[2018-04-18 17:19] VITALS: BP 148/89
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
[2018-04-18 18:18] LABS: APPEARANCE,URINE SLIGHTLY-CLOUDY; BILIRUBIN,URINE NEGATIVE (NEGATIVE); COLOR,URINE YELLOW; GLUCOSE, URINE NEGATIVE (NEGATIVE); KETONES,URINE NEGATIVE (NEGATIVE); LEUKOCYTE ESTERASE,URINE NEGATIVE (NEGATIVE); NITRITE,URINE NEGATIVE (NEGATIVE); PROTEIN,URINE NEGATIVE (NEGATIVE); URINE SPECIFIC GRAVITY 1.024
== END 2018-04-18 18:49 | disposition home or self-care (01) ==
LOC: ER 17:10
DX: R31.29 Other microscopic hematuria (principal); Z32.02 Encounter for pregnancy test, result negative; I10 Essential (primary) hypertension; F31.9 Bipolar disorder, unspecified; Z79.899 Other long term (current) drug therapy; Z62.820 Parent-biological child conflict; Z88.8 Allergy status to other drugs, medicaments and biological substances
CPT/HCPCS: 81001; 81025; 99283

== ENCOUNTER 2018-07-04 07:14 | Emergency (ER) | payer MEDICARE, MEDICAID ==
--- NOTE | 2018-07-04 07:32 | ER Document Report ---
ED General - General Chief Complaint: Vaginal Bleeding Stated Complaint: VAGINAL BLEEDING Time Seen by Provider: 07/04/18 07:31 Notes: Patient is a 33-year-old female that presents to the emergency department for chief complaint of vaginal bleeding and pelvic pain. Patient states that she has been having vaginal bleeding for the past 3 days, she just got out of [facility] yesterday, and has been having pelvic cramping as well, which she describes as a 3 out of 10. Patient states that she feels she may be , is not entirely sure, her last menstrual period started on June 08, and it ended on the , so she does not feel that she should be having any vaginal bleeding. She denies any recent fevers, chills, night sweats, nausea, vomiting or abdominal pain aside from her pelvic cramping. She also denies having any dysuria or hematuria. Past Medical History: Bipolar disorder Past Surgical History: Reviewed and not pertinent to current presentation Social History: Denies current tobacco, alcohol or illicit drug use. Family History: Reviewed and noncontributory for presenting illness Allergies: Reviewed, see documented allergy list. REVIEW OF SYSTEMS: Other than noted above, the 12 point review of systems was reviewed with the patient and were negative, all pertinent findings are included in the HPI. PHYSICAL EXAMINATION: Vital signs reviewed, nursing noted reviewed. GENERAL: Well-appearing, well-nourished and in no acute distress. Walking around the room, in no acute distress. HEAD: Atraumatic, normocephalic. EYES: Eyes appear normal, extraocular movements intact, sclera anicteric, conjunctiva are normal. ENT: nares patent, oropharynx clear without exudates. Moist mucous membranes. NECK: Normal range of motion, supple without lymphadenopathy LUNGS: Breath sounds clear to auscultation bilaterally and equal. No wheezes rales or rhonchi. HEART: Regular rate and rhythm without murmurs ABDOMEN: Soft, obese, nontender, normoactive bowel sounds. No rebound, guarding , or rigidity. No masses appreciated. EXTREMITIES: Nontender, good range of motion, no pitting or edema. NEUROLOGICAL: No focal neurological deficits. Moves all extremities spontaneously Motor and sensory grossly intact on exam. PSYCH: Normal mood, normal affect. SKIN: Warm, Dry, normal turgor, no rashes or lesions noted on exposed skin TRAVEL OUTSIDE OF THE [place] IN LAST 30 DAYS: No - Related Data Allergies/Adverse Reactions: lithium [[place]] Allergy (Mild, Verified 07/04/18 07:21) swollen lymph nodes aripiprazole [From Abilify] Allergy (Verified 07/04/18 07:21) fluphenazine enanthate [From Prolixin] Allergy (Verified 07/04/18 07:21) fluphenazine HCl [From Prolixin] Allergy (Verified 07/04/18 07:21) Past Medical History - Social History Smoking Status: Current Every Day Smoker Frequency of alcohol use: None Drug Abuse: None Family History: Reviewed & Not Pertinent Patient has suicidal ideation: No Patient has homicidal ideation: No - Past Medical History Cardiac Medical History: Reports: Hx Hypertension Denies: Hx Heart Attack Pulmonary Medical History: Denies: Hx Asthma, Hx Bronchitis, Hx COPD, Hx Pneumonia Neurological Medical History: Denies: Hx Cerebrovascular Accident, Hx Migraine, Hx Seizures Endocrine Medical History: Denies: Hx Diabetes Mellitus Type 1, Hx Diabetes Mellitus Type 2 Renal/ Medical History: Denies: Hx Ovarian Cysts, Hx Peritoneal Dialysis Psychiatric Medical History: Reports: Hx Anxiety, Hx Bipolar Disorder, Hx Depression, Hx Schizophrenia Past Surgical History: Reports: Hx Dilation and Curettage - Therapeutic AB, Hx Gynecologic Surgery - D&C - Immunizations Immunizations up to date: No Hx Diphtheria, Pertussis, Tetanus Vaccination: No Physical Exam - Vital signs Vitals: Temp Pulse Resp BP Pulse Ox 98.3 F 98 18 141/92 H 100 07/04/18 07:18 07/04/18 07:18 07/04/18 07:18 07/04/18 07:18 07/04/18 07:18 Course - Re-evaluation Re-evalutation: Patient seen and examined vital signs reviewed. Laboratory data and imaging were ordered as appropriate for the patient's presenting symptoms and complaint, with consideration of any critical or life threatening conditions that may be associated with their obtained history and exam as noted above. Results were reviewed when available and demonstrated negative HCG testing, and TV US demonstrated, small nebothian cyst, otherwise unremarkable. I do not feel that this is the source of the patient's symptoms. The patient was re-evaluated and was stable Evaluation was most consistent with menorhhagia and pelvic cramping, advised motrin for cramping and follow -up with [facility]. Results were discussed with the patient at this point, after careful consideration I feel that that patient can be discharged from the emergency department, the patient was educated treatments and reasons to return to the emergency department based on their presumed diagnosis as noted above, they were advised to followup with a primary care physician in 2-3 days. Patient was agreeable to plan of care. *Note is created using voice recognition software and may contain spelling, syntax or grammatical errors. Laboratory 07/04/18 07/04/18 07:46 08:00 Beta HCG, Quant < 2.39 Total Beta HCG NEGATIVE Urine Color YELLOW Urine Appearance CLOUDY Urine pH 5.0 Ur Specific [place] 1.018 Urine Protein NEGATIVE Urine Glucose (UA) NEGATIVE Urine Ketones NEGATIVE Urine Blood LARGE H Urine Nitrite NEGATIVE Urine Bilirubin NEGATIVE Urine Urobilinogen 2.0 H Ur Leukocyte Esterase NEGATIVE Urine WBC (Auto) 3 Urine RBC (Auto) 1 Urine Bacteria (Auto) 1+ Squamous Epi Cells Auto 6 Urine Mucus (Auto) RARE Urine Ascorbic Acid NEGATIVE Transvaginal US 07/04/18 07:42 IMPRESSION: 1. Small subcentimeter Nabothian cyst in the cervix region. 2. Examination is otherwise unremarkable sonographically. - Vital Signs Vital signs: Temp Pulse Resp BP Pulse Ox 98.4 F 88 18 137/86 H 98 07/04/18 09:18 07/04/18 09:18 07/04/18 07:18 07/04/18 09:18 07/04/18 09:18 - Laboratory Laboratory results interpreted by me: 07/04/18 07:46 Urine Blood LARGE H Urine Urobilinogen 2.0 H Discharge - Discharge Clinical Impression: Vaginal bleeding Condition: Stable Disposition: HOME, SELF-CARE Instructions: Vaginal Bleeding ([facility]) Additional Instructions: Please return to the emergency department if you have any worsening, or concern of your symptoms. Please return to the emergency department if you develop chest pain, difficulty breathing, severe abdominal pain, or ongoing vomiting. Please follow-up with your primary care physician in 2-3 days and any other recommended physicians. If prescribed, take all medications as directed. If you have any questions or concerns do not hesitate to return the emergency department for evaluation. Prescriptions: Ibuprofen [Motrin 800 mg Tablet] 800 mg PO Q8H PRN #30 tab PRN Reason: cramping Referrals: [facility] [Provider Group] - Follow up in 3-5 days
[2018-07-04 08:15] LABS: APPEARANCE,URINE CLOUDY; BILIRUBIN,URINE NEGATIVE (NEGATIVE); COLOR,URINE YELLOW; GLUCOSE, URINE NEGATIVE (NEGATIVE); KETONES,URINE NEGATIVE (NEGATIVE); LEUKOCYTE ESTERASE,URINE NEGATIVE (NEGATIVE); NITRITE,URINE NEGATIVE (NEGATIVE); PROTEIN,URINE NEGATIVE (NEGATIVE); URINE SPECIFIC GRAVITY 1.018
--- NOTE | 2018-07-04 09:12 | RADIOLOGY REPORT (SQ) ---
EXAM DESCRIPTION: U/S NON OB PEL TV W/DOPPLER COMPLETED DATE/TIME: 07/04/2018 8:45 am REASON FOR STUDY: pelvic pain, vaginal bleeding COMPARISON: None. TECHNIQUE: Dynamic and static grayscale images acquired of the pelvis via transvaginal approach and recorded on PACS. Additional selected color Doppler and spectral images recorded. LIMITATIONS: None. FINDINGS: UTERUS: Contour normal. No mass. ENDOMETRIAL STRIPE: No focal or generalized thickening. No masses. CERVIX: The cervix measures 3.6 cm in length. A small subcentimeter Nabothian cyst. RIGHT OVARY AND DOPPLER: Normal size. No worrisome masses. Normal arterial vascular flow without evid ence for torsion. LEFT OVARY AND DOPPLER: Normal size. No worrisome masses. Normal arterial vascular flow without evide nce for torsion. FREE FLUID: None noted. OTHER: No other significant finding. MEASUREMENTS: UTERUS: 9.5 x 5.1 x 4.3 cm ENDOMETRIAL STRIPE: 3.7 mm RIGHT OVARY: 3.7 x 2.3 x 2.1 cm LEFT OVARY: 3.0 x 1.8 x 1.5 cm IMPRESSION: 1. Small subcentimeter Nabothian cyst in the cervix region. 2. Examination is otherwise unremarkable sonographically. TECHNICAL DOCUMENTATION: JOB ID: [id number] [employer]- All Rights Reserved Rev Reading location - IP/workstation name: [email or web address]
[2018-07-04 09:19] VITALS: BP 137/86
== END 2018-07-04 09:29 | disposition home or self-care (01) ==
LOC: ER 07:14
DX: N93.8 Other specified abnormal uterine and vaginal bleeding (principal); I10 Essential (primary) hypertension; F17.200 Nicotine dependence, unspecified, uncomplicated
CPT/HCPCS: 36415; 76830; 81001; 84702; 93976; 99284

== ENCOUNTER 2018-10-28 14:43 | Emergency (ER) | payer MEDICARE, MEDICAID ==
--- NOTE | 2018-10-28 15:51 | ER Document Report ---
ED GI/ - General Chief Complaint: Vaginal Bleeding Stated Complaint: VAGINAL BLEEDING Time Seen by Provider: 10/28/18 15:13 Mode of Arrival: Ambulatory Information source: Patient Notes: Patient is an otherwise healthy 33-year-old female who presents to the emergency department with chief complaint of vaginal bleeding. Patient reports that she had an on 10/07/18 in [place] at approximate 10 weeks gestation. Patient reports that she has had light bleeding since the procedure but the last 2 days her bleeding has increased and she has been passing quarter size clots. Patient denies any significant past medical history, states that her only medication she takes daily as control pills. TRAVEL OUTSIDE OF THE [place] IN LAST 30 DAYS: No - Related Data Allergies/Adverse Reactions: lithium [[place]] Allergy (Mild, Verified 10/28/18 14:46) swollen lymph nodes aripiprazole [From Abilify] Allergy (Verified 10/28/18 14:46) fluphenazine enanthate [From Prolixin] Allergy (Verified 10/28/18 14:46) fluphenazine HCl [From Prolixin] Allergy (Verified 10/28/18 14:46) Past Medical History - General Information source: Patient - Social History Smoking Status: Current Every Day Smoker Frequency of alcohol use: None Drug Abuse: None Family History: Reviewed & Not Pertinent Patient has suicidal ideation: No Patient has homicidal ideation: No - Past Medical History Cardiac Medical History: Reports: Hx Hypertension Denies: Hx Heart Attack Pulmonary Medical History: Denies: Hx Asthma, Hx Bronchitis, Hx COPD, Hx Pneumonia Neurological Medical History: Denies: Hx Cerebrovascular Accident, Hx Migraine, Hx Seizures Endocrine Medical History: Denies: Hx Diabetes Mellitus Type 1, Hx Diabetes Mellitus Type 2 Renal/ Medical History: Denies: Hx Ovarian Cysts, Hx Peritoneal Dialysis Psychiatric Medical History: Reports: Hx Anxiety, Hx Bipolar Disorder, Hx Depression, Hx Schizophrenia Past Surgical History: Reports: Hx Dilation and Curettage - Therapeutic AB, Hx Gynecologic Surgery - D&C - Immunizations Immunizations up to date: No Hx Diphtheria, Pertussis, Tetanus Vaccination: No Review of Systems - Review of Systems Constitutional: No symptoms reported EENT: No symptoms reported Cardiovascular: No symptoms reported Respiratory: No symptoms reported Gastrointestinal: Abdominal pain - Low abdominal cramping Genitourinary: No symptoms reported Female Genitourinary: Vaginal bleeding Musculoskeletal: No symptoms reported Skin: No symptoms reported Hematologic/Lymphatic: No symptoms reported Neurological/Psychological: No symptoms reported Physical Exam - Vital signs Vitals: Temp Pulse Resp BP Pulse Ox 98.8 F 78 16 150/90 H 98 10/28/18 14:49 10/28/18 14:49 10/28/18 14:49 10/28/18 14:49 10/28/18 14:49 - Notes Notes: PHYSICAL EXAMINATION: GENERAL: Well-appearing, well-nourished and in no acute distress. HEAD: Atraumatic, normocephalic. EYES: Pupils equal round and reactive to light, extraocular movements intact, conjunctiva are normal. ENT: Nares patent, oropharynx clear without exudates. Moist mucous membranes. NECK: Normal range of motion, supple without lymphadenopathy LUNGS: Breath sounds clear to auscultation bilaterally and equal. No wheezes rales or rhonchi. HEART: Regular rate and rhythm without murmurs ABDOMEN: Soft, nontender, nondistended abdomen. No guarding, no rebound. No masses appreciated. Female : Vaginal speculum exam reveals a closed cervix with no cervical motion tenderness or adnexal tenderness small amount of dark red blood in the vaginal vault, no active bleeding noted at this time. Musculoskeletal: Normal range of motion, no pitting or edema. No cyanosis. NEUROLOGICAL: Cranial nerves grossly intact. Normal speech, normal gait. Normal sensory, motor exams PSYCH: Normal mood, normal affect. SKIN: Warm, Dry, normal turgor, no rashes or lesions noted. Course - Re-evaluation Re-evalutation: No active bleeding noted at the time of vaginal speculum exam. Patient reports that she is only having to change her pad a couple of times a day. Patient will be sent for a transvaginal ultrasound to evaluate for retained products of conception although I feel this is unlikely as patient has only very slight low abdominal cramping and has not had any fevers. 10/28/18 16:53 Transvaginal ultrasound shows endometrial thickening measuring up to 2.5 cm with increased vascularity, suggestive of retained products. I called and spoke with the OB on-call, Dr. Fish and discussed patient's case. Considering patient is having very mild low abdominal cramping, no active bleeding at this time and her vital signs are normal. Patient will be followed up in their office, patient to call them Tuesday. I will draw baseline labs in preparation for this appointment. Patient is Rh+ so no RhoGam is indicated. I had an extensive discussion with the patient regarding ED return precautions to include worsening abdominal pain, bleeding through more than 1 pad per hour for 4 hours consecutively or development of a fever. Patient verbalizes understanding and agreement with same. - Vital Signs Vital signs: Temp Pulse Resp BP Pulse Ox 98.8 F 78 16 150/90 H 98 10/28/18 14:49 10/28/18 14:49 10/28/18 14:49 10/28/18 14:49 10/28/18 14:49 Discharge - Discharge Clinical Impression: Vaginal bleeding Condition: Stable Disposition: HOME, SELF-CARE Additional Instructions: It is very important that you call [facility] Tuesday to schedule a follow-up appointment. Tell them you are seen in the emergency department and Dr. Malika Fish wanted you to call Tuesday to get an appointment for urgent follow-up. In the meanwhile please return to the emergency department if you develop more persistent vaginal bleeding, bleeding through more than 1 pad per hour for 4 hours consecutively, you develop worsening or severe abdominal pain or you develop a fever. Please continue to take either Tylenol or Motrin for any pain or discomfort. Referrals: NAKUL NORIEGA MD [ACTIVE STAFF] - Follow up as needed MALIKA FISH MD [[facility]] - Follow up as needed
--- NOTE | 2018-10-28 16:23 | RADIOLOGY REPORT (SQ) ---
EXAM DESCRIPTION: U/S NON OB PEL TV W/DOPPLER COMPLETED DATE/TIME: 10/28/2018 4:05 pm REASON FOR STUDY: eval for retained POC COMPARISON: None. TECHNIQUE: Dynamic and static grayscale images acquired of the pelvis via transvaginal approach and recorded on PACS. Additional selected color Doppler and spectral images recorded. LIMITATIONS: None. FINDINGS: UTERUS: Contour normal.. ENDOMETRIAL STRIPE: Heterogeneous thickening with increased vascularity. CERVIX: No nabothian cysts. RIGHT OVARY AND DOPPLER: Normal size. No worrisome masses. Normal arterial vascular flow without evid ence for torsion. LEFT OVARY AND DOPPLER: Normal size. No worrisome masses. Normal arterial vascular flow without evide nce for torsion. FREE FLUID: None noted. OTHER: No other significant finding. MEASUREMENTS: UTERUS: 10.4 x 6.1 x 5.0 cm ENDOMETRIAL STRIPE: 2.5 cm RIGHT OVARY: 3.6 x 2.2 x 3.1 cm LEFT OVARY: 3.6 x 2.2 x 2.0 cm IMPRESSION: Heterogeneous endometrial thickening, measuring up to 2.5 cm, with increased vascularity , this is suggestive of retained products. TECHNICAL DOCUMENTATION: JOB ID: [id number] [employer]- All Rights Reserved Rev Reading location - IP/workstation name: Repair Report
[2018-10-28 17:14] LABS: ABSOLUTE BASOPHILS # (AUTO) 0.1 10^3/uL (0.0-0.2); ABSOLUTE EOSINOPHILS # (AUTO) 0.1 10^3/uL (0.0-0.6); ABSOLUTE LYMPHOCYTES (AUTO) 3.3 10^3/uL (0.5-4.7); ABSOLUTE MONOCYTES (AUTO) 0.4 10^3/uL (0.1-1.4); ABSOLUTE NEUT (AUTO) 7.3 10^3/uL (1.7-8.2); BASOPHILS % (AUTO) 0.6 % (0-2); EOSINOPHILS % (AUTO) 1.1 % (0-6); HEMATOCRIT 36.7 % (36.0-47.0); HEMOGLOBIN 12.3 g/dL (12.0-15.5); LYMPHOCYTES % (AUTO) 29.4 % (13-45); MEAN CORPUSCULAR HEMOGLOBIN 30.5 pg (27.0-33.4); MEAN CORPUSCULAR HGB CONC 33.5 g/dL (32.0-36.0); MEAN CORPUSCULAR VOLUME 91 fl (80-97); MONOCYTES % (AUTO) 3.6 % (3-13); PLATELET COUNT 338 10^3/uL (150-450); RED BLOOD COUNT 4.03 10^6/uL (3.72-5.28); RED CELL DISTRIBUTION WIDTH 14.1 % (11.5-14.0); SEGMENTED NEUTROPHILS % (AUTO) 65.3 % (42-78); TOTAL CELLS COUNTED % (AUTO) 100 %; WHITE BLOOD COUNT 11.1 10^3/uL (4.0-10.5)
[2018-10-28 17:21] VITALS: BP 138/89
[2018-10-28 17:33] LABS: ALANINE AMINOTRANSFERASE 30 U/L (9-52); ALBUMIN 3.8 g/dL (3.5-5.0); ALKALINE PHOSPHATASE 75 U/L (38-126); ANION GAP 8 (5-19); ASPARTATE AMINO TRANSFERASE 21 U/L (14-36); BILIRUBIN,DIRECT 0.2 mg/dL (0.0-0.4); BILIRUBIN,TOTAL 0.3 mg/dL (0.2-1.3); BLOOD UREA NITROGEN 10 mg/dL (7-20); CALCIUM 9.4 mg/dL (8.4-10.2); CARBON DIOXIDE 27 mmol/L (22-30); CHLORIDE 103 mmol/L (98-107); GLUCOSE 76 mg/dL (75-110); POTASSIUM 4.2 mmol/L (3.6-5.0); SODIUM 137.8 mmol/L (137-145); TOTAL PROTEIN 7.2 g/dL (6.3-8.2)
== END 2018-10-28 17:20 | disposition home or self-care (01) ==
LOC: ER 14:43
DX: N93.8 Other specified abnormal uterine and vaginal bleeding (principal); F17.200 Nicotine dependence, unspecified, uncomplicated; I10 Essential (primary) hypertension; Z79.3 Long term (current) use of hormonal contraceptives
CPT/HCPCS: 36415; 76830; 80053; 84702; 85025; 93976; 99284

== ENCOUNTER 2018-11-24 22:15 | Emergency (ER) | payer MEDICARE, MEDICAID ==
[2018-11-25] MEDS ORDERED: DEXAMETHASONE 4 MG TABLET PO ONE (00:39)
--- NOTE | 2018-11-25 00:40 | ER Document Report ---
ED General - General Chief Complaint: Sore Throat Stated Complaint: SORE THROAT AND CHILLS Time Seen by Provider: 11/25/18 00:02 Primary Care Provider: NABEEL JONES MD [Primary Care Provider] - Follow up as needed Notes: Patient is a 33-year-old female without chronic medical problems who presents with sore throat, body aches and fatigue for the past 24 hours. Patient states that symptoms started gradually, mild to moderate in nature, constant since onset. Nothing seems to improve or worsen her symptoms. States that she is a history of similar symptoms in the past with strep throat or colds. She has not seen her primary care physician regarding today's concerns. She denies any known sick contacts. Has not had fever. No difficulty swallowing or breathing. TRAVEL OUTSIDE OF THE [place] IN LAST 30 DAYS: No - Related Data Allergies/Adverse Reactions: lithium [[place]] Allergy (Mild, Verified 10/28/18 14:46) swollen lymph nodes aripiprazole [From Abilify] Allergy (Verified 10/28/18 14:46) fluphenazine enanthate [From Prolixin] Allergy (Verified 10/28/18 14:46) fluphenazine HCl [From Prolixin] Allergy (Verified 10/28/18 14:46) Past Medical History - General Information source: Patient - Social History Smoking Status: Never Smoker Frequency of alcohol use: None Drug Abuse: None Lives with: Family Family History: Reviewed & Not Pertinent - Past Medical History Cardiac Medical History: Reports: Hx Hypertension Denies: Hx Heart Attack Pulmonary Medical History: Denies: Hx Asthma, Hx Bronchitis, Hx COPD, Hx Pneumonia Neurological Medical History: Denies: Hx Cerebrovascular Accident, Hx Migraine, Hx Seizures Endocrine Medical History: Denies: Hx Diabetes Mellitus Type 1, Hx Diabetes Mellitus Type 2 Renal/ Medical History: Denies: Hx Ovarian Cysts, Hx Peritoneal Dialysis Psychiatric Medical History: Reports: Hx Anxiety, Hx Bipolar Disorder, Hx Depression, Hx Schizophrenia Past Surgical History: Reports: Hx Dilation and Curettage - Therapeutic AB, Hx Gynecologic Surgery - D&C - Immunizations Immunizations up to date: No Hx Diphtheria, Pertussis, Tetanus Vaccination: No Review of Systems - Review of Systems Notes: Constitutional: Negative for fever. Positive for body pain HENT: Positive for sore throat. Eyes: Negative for visual changes. Cardiovascular: Negative for chest pain. Respiratory: Negative for shortness of breath. Gastrointestinal: Negative for abdominal pain, vomiting or diarrhea. Genitourinary: Negative for dysuria. Musculoskeletal: Negative for back pain. Skin: Negative for rash. Neurological: Negative for headaches, weakness or numbness. 10 point ROS negative except as marked above and in HPI. Physical Exam - Vital signs Vitals: Temp Pulse Resp BP Pulse Ox 99.8 F 105 H 22 H 155/112 H 100 11/24/18 22:21 11/24/18 22:21 11/24/18 22:21 11/24/18 22:21 11/24/18 22:21 Interpretation: Hypertensive, Tachycardic Notes: PHYSICAL EXAMINATION: GENERAL: Well-appearing, well-nourished and in no acute distress. HEAD: Atraumatic, normocephalic. EYES: Pupils equal round and reactive to light, extraocular movements intact, sclera anicteric, conjunctiva are normal. ENT: nares patent, bilateral tonsillar exudates. Mildly dry mucous membranes NECK: Normal range of motion, bilateral anterior cervical lymphadenopathy LUNGS: Breath sounds clear to auscultation bilaterally and equal. No wheezes rales or rhonchi. HEART: Regular rate and rhythm without murmurs ABDOMEN: Soft, nontender, normoactive bowel sounds. No guarding, no rebound. No masses appreciated. EXTREMITIES: Normal range of motion, no pitting or edema. No cyanosis. NEUROLOGICAL: No focal neurological deficits. Moves all extremities spontaneous ly and on command. PSYCH: Normal mood, normal affect. SKIN: Warm, Dry, normal turgor, no rashes or lesions noted. Course - Re-evaluation Re-evalutation: 11/25/18 00:39 Presentation of several days of sore throat in an otherwise well-appearing patient. Rapid strep is negative. History and exam are not consistent with a retropharyngeal abscess or peritonsillar abscess. Airway is patent. No difficulty handling oral secretions. Vitals within normal limits. Patient was treated with a dose of dexamethasone and advised on symptomatic care. Suspect likely viral pharyngitis. At this time will discharge with return precautions and follow-up recommendations. Verbal discharge instructions given a the bedside and opportunity for questions given. Medication warnings reviewed. Patient is in agreement with this plan and has verbalized understanding of return precautions and the need for primary care follow-up in the next 24-72 hours. - Vital Signs Vital signs: Temp Pulse Resp BP Pulse Ox 99.8 F 105 H 16 136/83 H 96 11/24/18 22:21 11/24/18 22:21 11/25/18 01:00 11/25/18 01:00 11/25/18 01:00 Discharge - Discharge Clinical Impression: Viral pharyngitis, Sore throat Condition: Good Disposition: HOME, SELF-CARE Additional Instructions: Your strep test is negative. Your symptoms are likely due to an viral infection and will resolve in the next 1-2 weeks. You have also been given a dose of steroids to help with your throat discomfort. Please continue to take ibuprofen 600 mg every 6 hours or Tylenol 1000 mg every 6 hours as needed for throat discomfort. You can also gargle with salt water. Continue to drink plenty of fluids. Follow-up with your primary care doctor in the next several days. Return if you become unable to swallow, have difficulty breathing, pass out, have persistent vomiting that prevents you from being able to tolerate fluids, or have any other symptoms that are concerning to you. Referrals: NABEEL JONES MD [Primary Care Provider] - Follow up as needed
[2018-11-25 01:01] VITALS: BP 136/83
== END 2018-11-25 00:50 | disposition home or self-care (01) ==
LOC: ER 22:15
DX: J02.8 Acute pharyngitis due to other specified organisms (principal); B97.89 Other viral agents as the cause of diseases classified elsewhere; R53.83 Other fatigue; I10 Essential (primary) hypertension; Z88.8 Allergy status to other drugs, medicaments and biological substances
CPT/HCPCS: 99283; 87070; 87880; 87077; A9270

== ENCOUNTER 2019-06-22 22:23 | Emergency (ER) | payer MEDICARE, MEDICAID ==
[2019-06-22] MEDS ORDERED: NORMAL SALINE 1000 ML 1,000 ML IV ONE (23:04)
[2019-06-22] MEDS ORDERED: NALOXONE HCL INJ/PF 0.4 MG/1 ML SDV IV ONE (23:04)
--- NOTE | 2019-06-22 23:12 | ER Document Report ---
ED General - General TRAVEL OUTSIDE OF THE [place] IN LAST 30 DAYS: No - Related Data Home Medications: Patient currently states her only medication daily is oral contraceptives <JAVIER DEXTER - Last Filed: 06/23/19 01:51> <MATT CLAROS - Last Filed: 06/24/19 14:29> <NURIA PICKETT - Last Filed: 06/24/19 14:51> - General Chief Complaint: Abdominal Problem Stated Complaint: NAUSEA Time Seen by Provider: 06/22/19 22:49 Primary Care Provider: Mariza Toledo [Outside] - Follow up tomorrow FRANTZ ZAMORA NP [Primary Care Provider] - Follow up as needed - [facility] Notes: Patient is a 34-year-old female who presents to the emergency department for evaluation. Initially at triage evidently she complained of abdominal pain. To me she states that she has been nauseated, and has had some difficulty sleeping for the last several days. She is unable to give me any real history beyond that. The patient is exceptionally drowsy, falls asleep multiple times during my interview. The patient then states to me that she has had some intermittent abdominal cramping, and states she could be . She is unable to tell me when her last menstrual period is. At that point she states to me that I cannot help her. It is her bipolar disorder, and "no one has ever been able to help me." She avoids answering any questions in regards to suicidal or homicidal ideations, and then falls back asleep. (JAVIER DEXTER) - Related Data Allergies/Adverse Reactions: lithium [[place]] Allergy (Mild, Verified 10/28/18 14:46) swollen lymph nodes aripiprazole [From Abilify] Allergy (Verified 10/28/18 14:46) fluphenazine enanthate [From Prolixin] Allergy (Verified 10/28/18 14:46) fluphenazine HCl [From Prolixin] Allergy (Verified 10/28/18 14:46) Past Medical History - General Information source: Patient - Social History Smoking Status: Unknown if Ever Smoked Frequency of alcohol use: Occasional Drug Abuse: Marijuana Family History: Reviewed & Not Pertinent Patient has suicidal ideation: No Patient has homicidal ideation: No - Past Medical History Cardiac Medical History: Denies: Hx Heart Attack Pulmonary Medical History: Denies: Hx Asthma, Hx Bronchitis, Hx COPD, Hx Pneumonia Neurological Medical History: Denies: Hx Cerebrovascular Accident, Hx Migraine, Hx Seizures Endocrine Medical History: Denies: Hx Diabetes Mellitus Type 1, Hx Diabetes Mellitus Type 2 Renal/ Medical History: Denies: Hx Ovarian Cysts, Hx Peritoneal Dialysis Psychiatric Medical History: Reports: Hx Anxiety, Hx Bipolar Disorder, Hx Depression, Hx Schizophrenia Past Surgical History: Reports: Hx Dilation and Curettage - Therapeutic AB, Hx Gynecologic Surgery - D&C - Immunizations Immunizations up to date: No Hx Diphtheria, Pertussis, Tetanus Vaccination: No <JAVIER DEXTER - Last Filed: 06/23/19 01:51> Review of Systems - Review of Systems -: Yes ROS unobtainable due to patient's medical condition <JAVIER DEXTER - Last Filed: 06/23/19 01:51> Physical Exam <JAVIER DEXTER - Last Filed: 06/23/19 01:51> - Vital signs Vitals: Temp Pulse Resp BP Pulse Ox 98.1 F 80 20 145/87 H 96 06/22/19 22:39 06/22/19 22:39 06/22/19 22:39 06/22/19 22:39 06/22/19 22:39 - Notes Notes: Is a 34-year-old female who appears her stated age. She is very drowsy, falls asleep multiple times during my interview. She awakes to voice or mild tactile stimulation. GCS 14. Vital signs reviewed, please refer to chart. Head is normocephalic, atraumatic. Pupils equal and round, reactive to light, although slightly sluggish, 3 to 4 mm. Neck is supple without meningismus. Heart is regular rate and rhythm. Lungs are clear to auscultation bilaterally. Abdomen is soft, nontender, normoactive bowel sounds throughout. Extremities without cyanosis, clubbing. Posterior calves are nontender. Peripheral pulses are equal. Skin is warm and dry. Patient is extremely drowsy. She will only intermittently follow commands. She is oriented to place, will not answer questions regarding person or time. She has no gross facial asymmetry, moves all 4 extremities spontaneously. (JAVIER DEXTER) Course - Laboratory Result Diagrams: 06/22/19 23:02 06/22/19 23:02 - Diagnostic Test Radiology reviewed: Reports reviewed <JAVIER DEXTER M - Last Filed: 06/23/19 01:51> - Laboratory Result Diagrams: 06/22/19 23:02 06/22/19 23:02 <MATT CLAROS - Last Filed: 06/24/19 14:29> - Laboratory Result Diagrams: 06/22/19 23:02 06/22/19 23:02 <NURIA PICKETT R - Last Filed: 06/24/19 14:51> - Re-evaluation Re-evalutation: 06/22/19 23:11 Patient presents emergency department for evaluation. Her initial complaint is insomnia and nausea, but the patient is extremely somnolent on arrival. I reviewed this patient's history. She does have an extensive psychiatric history, with definite bipolar disorder and potential schizophrenia. She also has a history of marijuana abuse. The patient was placed on the monitor, laboratory investigations, EKG, imaging ordered. The patient will be administered Narcan. Glucometer reading unremarkable. We will continue to monitor for response. 06/23/19 01:13 Patient had no response to Narcan. She was intermittently drowsy. I was cristian rned about the possibility of a toxicological etiology of her symptoms. We did attempt straight cath. The patient became much more awake. She absolutely refused this, as well as pelvic exam. She was able to urinate on a bedpan for us. Laboratory investigations were largely unremarkable. Urinalysis did reveal 10 white blood cells per high-power field and small leukocyte esterase. Urine sent for culture, she is not overwhelming signs of infection at this time. I was able to revisit this patient's history here in the emergency department. She has a long-standing history of bipolar disorder with psychotic features. She has had to be on Depakote preparations of antipsychotics in the past. My suspicion is that this patient is currently manic and having a psychotic episode. She has been stable in regards to her vital signs throughout the course of her stay. I am concerned that she is not being forthcoming in regards to her history, and concerned that she could be a danger to herself. IVC orders placed. She is medically cleared, awaiting psychosocial evaluation in the morning. 06/23/19 01:17 Acetaminophen and salicylate levels added. 06/23/19 01:51 Acetaminophen and salicylate levels unremarkable. Patient medically cleared for psychosocial evaluation in the morning. (JAVIER DEXTER) - Vital Signs Vital signs: Temp Pulse Resp BP Pulse Ox 98.2 F 88 18 159/90 H 99 06/24/19 14:38 06/24/19 14:38 06/24/19 14:38 06/24/19 14:38 06/24/19 14:38 - Laboratory Laboratory results interpreted by me: 06/22/19 06/22/19 06/22/19 23:02 23:02 23:02 WBC 11.3 H RDW 14.2 H AST 52 H Urine Urobilinogen Ur Leukocyte Esterase Salicylates 1.0 L Acetaminophen < 10 L 06/23/19 00:03 WBC RDW AST Urine Urobilinogen 2.0 H Ur Leukocyte Esterase SMALL H Salicylates Acetaminophen - Diagnostic Test Radiology results interpreted by me: 06/23/19 01:17 Chest X-Ray 06/22/19 23:04 IMPRESSION: Cardiomegaly. Lungs are clear copyright 2011 [employer]- All Rights Reserved Head CT 06/22/19 23:04 IMPRESSION: No acute intracranial findings. (JAVIER DEXTER) - EKG Interpretation by Me Additional EKG results interpreted by me: 06/23/19 01:16 Sinus mechanism with a rate of 79 bpm. Normal axis and intervals, no acute ST changes concerning for ischemia or infarction. (JAVIER DEXTER) Discharge <JAVIER DEXTER - Last Filed: 06/23/19 01:51> <MATT CLAROS - Last Filed: 06/24/19 14:29> <NURIA PICKETT - Last Filed: 06/24/19 14:51> - Discharge Clinical Impression: Altered mental status Qualifiers: Altered mental status type: unspecified Qualified Code(s): R41.82 - Altered mental status, unspecified Bipolar disorder Qualifiers: Current bipolar episode type: manic Current episode severity: moderate Condition: Stable Disposition: HOME, SELF-CARE Additional Instructions: You have been evaluated both medical and behavioral health teams and been deemed appropriate for discharge. You are highly encouraged to take your medications as prescribed by your outpatient mental health provider. Please follow-up with your outpatient mental health provider, [facility] tomorrow 06/25/2019 for your continued outpatient mental health services. AT ANY TIME, IF YOUR SYMPTOMS CHANGE SIGNIFICANTLY OR WORSEN OR YOU DEVELOP NEW SYMPTOMS, RETURN TO THE EMERGENCY DEPARTMENT IMMEDIATELY FOR RE-EVALUATION. Referrals: FRANTZ ZAMORA CARD SCRAPER [Primary Care Provider] - Follow up as needed [facility] [Outside] - Follow up tomorrow
[2019-06-22 23:16] LABS: ABSOLUTE BASOPHILS # (AUTO) 0.1 10^3/uL (0.0-0.2); ABSOLUTE EOSINOPHILS # (AUTO) 0.3 10^3/uL (0.0-0.6); ABSOLUTE LYMPHOCYTES (AUTO) 2.8 10^3/uL (0.5-4.7); ABSOLUTE MONOCYTES (AUTO) 0.5 10^3/uL (0.1-1.4); ABSOLUTE NEUT (AUTO) 7.5 10^3/uL (1.7-8.2); BASOPHILS % (AUTO) 1.2 % (0-2); EOSINOPHILS % (AUTO) 2.6 % (0-6); HEMATOCRIT 37.2 % (36.0-47.0); HEMOGLOBIN 12.2 g/dL (12.0-15.5); LYMPHOCYTES % (AUTO) 25.2 % (13-45); MEAN CORPUSCULAR HEMOGLOBIN 29.4 pg (27.0-33.4); MEAN CORPUSCULAR HGB CONC 32.7 g/dL (32.0-36.0); MEAN CORPUSCULAR VOLUME 90 fl (80-97); MONOCYTES % (AUTO) 4.5 % (3-13); PLATELET COUNT 369 10^3/uL (150-450); RED BLOOD COUNT 4.13 10^6/uL (3.72-5.28); RED CELL DISTRIBUTION WIDTH 14.2 % (11.5-14.0); SEGMENTED NEUTROPHILS % (AUTO) 66.5 % (42-78); TOTAL CELLS COUNTED % (AUTO) 100 %; WHITE BLOOD COUNT 11.3 10^3/uL (4.0-10.5)
[2019-06-22 23:38] LABS: ALBUMIN 3.7 g/dL (3.5-5.0); ALCOHOL < 10 mg/dL (NONE DETECTED); ALKALINE PHOSPHATASE 64 U/L (38-126); ANION GAP 10 (5-19); ASPARTATE AMINO TRANSFERASE 52 U/L (14-36); BILIRUBIN,DIRECT 0.2 mg/dL (0.0-0.4); BILIRUBIN,TOTAL 0.4 mg/dL (0.2-1.3); BLOOD UREA NITROGEN 13 mg/dL (7-20); CALCIUM 8.9 mg/dL (8.4-10.2); CARBON DIOXIDE 23 mmol/L (22-30); CHLORIDE 107 mmol/L (98-107); GLUCOSE 86 mg/dL (75-110); POTASSIUM 4.4 mmol/L (3.6-5.0); TOTAL PROTEIN 7.2 g/dL (6.3-8.2)
--- NOTE | 2019-06-22 23:43 | RADIOLOGY REPORT (SQ) ---
EXAM DESCRIPTION: XR CHEST 1 VIEW COMPLETED DATE/TME: 06/22/2019 23:04 CLINICAL HISTORY: 34 years, Female, altered mental status COMPARISON: 04/29/2014 chest NUMBER OF VIEWS: 1 TECHNIQUE: Portable chest LIMITATIONS: None. FINDINGS: The heart appears enlarged. The lungs are clear. No pneumothorax IMPRESSION: Cardiomegaly. Lungs are clear copyright 2011 [employer]- All Rights Reserved
[2019-06-23 00:41] LABS: APPEARANCE,URINE SLIGHTLY-CLOUDY; BILIRUBIN,URINE NEGATIVE (NEGATIVE); COLOR,URINE YELLOW; GLUCOSE, URINE NEGATIVE (NEGATIVE); KETONES,URINE NEGATIVE (NEGATIVE); LEUKOCYTE ESTERASE,URINE SMALL (NEGATIVE); NITRITE,URINE NEGATIVE (NEGATIVE); PROTEIN,URINE NEGATIVE (NEGATIVE); URINE SPECIFIC GRAVITY 1.027
--- NOTE | 2019-06-23 00:46 | RADIOLOGY REPORT (SQ) ---
CLINICAL HISTORY: altered mental status COMPARISON: None. TECHNIQUE: CT HEAD WITHOUT IV CONTRAST on 06/22/2019 11:04 PM ASSESSMENT SPECIALIST This exam was performed according to our departmental dose-optimization program, which includes automated exposure control, adjustment of the mA and/or kV according to patient size and/or use of iterative reconstruction technique. FINDINGS: There is no acute hemorrhage, mass effect or midline shift. Henning-white differentiation is preserved. There is no hydrocephalus. There is no significant volume loss for age. The calvarium is intact. Orbits and globes are unremarkable. The paranasal sinuses are clear. Mastoid air cells are clear. IMPRESSION: No acute intracranial findings.
[2019-06-23 00:56] LABS: URINE AMPHETAMINES SCREEN NEGATIVE; URINE BARBITURATES SCREEN NEGATIVE; URINE BENZODIAZEPINES SCREEN NEGATIVE; URINE COCAINE SCREEN NEGATIVE; URINE MARIJUANA (THC) SCREEN UNCONFIRMED POSITIVE; URINE METHADONE SCREEN NEGATIVE; URINE PHENCYCLIDINE SCREEN NEGATIVE
[2019-06-23 01:48] LABS: ACETAMINOPHEN < 10 ug/mL (10-30)
[2019-06-23] MEDS ORDERED: OLANZAPINE 5 MG TAB.RAPDIS PO ONE (08:51)
[2019-06-23] MEDS ORDERED: IBUPROFEN 600 MG TABLET PO ONE ×2 (09:54→10:02)
--- NOTE | 2019-06-23 11:36 | EKG REPORT ---
SEVERITY:- ABNORMAL ECG - SINUS RHYTHM LEFT VENTRICULAR HYPERTROPHY : Confirmed by: Krystal He MD 23-Jun-2019 11:35:22
[2019-06-23] MEDS ORDERED: ACETAMINOPHEN 325 MG TABLET PO ONE (14:00)
--- NOTE | 2019-06-23 15:45 | ER Document Report ---
Doctor's Note Notes: 06/23/19 15:42 Vitals stable. Patient earlier was acting disruptive, has received medication and is now resting comfortably. Pt will continue to remain IVC psychiatric recommendations.
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
[2019-06-23] MEDS ORDERED: OLANZAPINE INJ/PF 10 MG SDV IM ONE (18:36)
[2019-06-23] MEDS ORDERED: BENZTROPINE MESYLATE INJ 2 MG/2 ML AMPULE IM ONE (18:37)
[2019-06-23] MEDS: BENZTROPINE MESYLATE 1 MG TABLET PO SCH (19:43)
[2019-06-23] MEDS: OLANZAPINE 5 MG TAB.RAPDIS PO SCH ×2 (19:43→19:47)
[2019-06-23] MEDS: DIPHENHYDRAMINE HCL 50 MG CAPSULE PO ONE ×2 (22:25→23:34)
[2019-06-23] MEDS ORDERED: IBUPROFEN 800 MG TABLET PO ONE (23:25)
[2019-06-24] MEDS: BENZTROPINE MESYLATE 1 MG TABLET PO SCH (10:07)
[2019-06-24] MEDS: OLANZAPINE 5 MG TAB.RAPDIS PO SCH (10:07)
--- NOTE | 2019-06-24 13:32 | ER Document Report ---
Doctor's Note Notes: 06/24/19 13:31 Evaluated patient. Vitals continues to stay stable. Patient resting comfortably. Patient continues to remain IVC per psychiatric recommendation.
[2019-06-24] MEDS ORDERED: IBUPROFEN 600 MG TABLET PO ONE (13:52)
--- NOTE | 2019-06-24 14:30 | PSYCHOLOGICAL NOTE ---
Psych Note - Psych Note Date seen by psych provider: 06/24/19 Time seen by psych provider: 12:00 Psych Note: Reason for consult: Psychosis Check in conducted with patient: Patient presentation has significantly improved. Her moods are no longer labile and she is able to have appropriate, organized and linear conversations. Patient discloses that she was able to sleep last night but admits she woke up once. Clinician was informed the patient was briefly thinking that she may have been . This is noted to be a frequent concern for the patient and historically one of the reasons she stopped taking her psychiatric medications. Medication recommendations per [facility]'s contracted psychiatrist Dr. Lyn RAO are as follows Zyprexa Zydis 5 mg twice daily Cogentin 1 mg daily Bipolar 1 with psychotic features Impression\plan: Patient is recommended for rescind IVC and cleared from acute psychiatric services. Patient is no longer demonstrating manic mood with labile affect. She is able to engage in appropriate organized and linear conversations. Patient does still demonstrate some delusional thought processes however this is baseline for the patient as noted throughout patient's charted history. Patient's delusions do not cause her others harm. Patient is recommended to follow-up with her outpatient mental health provider, [facility]. Dr. Burger was consulted on this patient; attending physician is in agreement with recommendations and disposition.
[2019-06-24 14:40] VITALS: BP 159/90
== END 2019-06-24 14:54 | disposition home or self-care (01) ==
LOC: ER 22:23
DX: F31.9 Bipolar disorder, unspecified (principal); R40.0 Somnolence; R11.0 Nausea; G47.00 Insomnia, unspecified; R10.9 Unspecified abdominal pain; F12.10 Cannabis abuse, uncomplicated; Z79.3 Long term (current) use of hormonal contraceptives; Z88.8 Allergy status to other drugs, medicaments and biological substances
CPT/HCPCS: 93005; 36415; 87086; 82962; 80307 ×4; 83735; 84703; 85025; 87088; 80053; 81001; 84484; 71045; 70450; 93010; A9270 ×3; J2310; J7030; 99285; J3490

== ENCOUNTER 2019-07-13 18:59 | Emergency (ER) | payer MEDICARE, MEDICAID ==
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
[2019-07-13] MEDS ORDERED: LORAZEPAM INJ 2 MG/1 ML VIAL IM ONE (20:03)
[2019-07-13] MEDS ORDERED: HALOPERIDOL LACTATE INJ 5 MG/1 ML VIAL IM ONE (20:03)
[2019-07-13 21:46] LABS: ABSOLUTE LYMPHOCYTES (AUTO) 2.2 10^3/uL (0.5-4.7); ABSOLUTE MONOCYTES (AUTO) 0.6 10^3/uL (0.1-1.4); ABSOLUTE NEUT (AUTO) 9.6 10^3/uL (1.7-8.2); BASOPHILS % (AUTO) 0.2 % (0-2); EOSINOPHILS % (AUTO) 0.4 % (0-6); HEMOGLOBIN 11.5 g/dL (12.0-15.5); LYMPHOCYTES % (AUTO) 17.5 % (13-45); MEAN CORPUSCULAR HEMOGLOBIN 29.4 pg (27.0-33.4); MEAN CORPUSCULAR VOLUME 89 fl (80-97); MONOCYTES % (AUTO) 4.7 % (3-13); PLATELET COUNT 321 10^3/uL (150-450); RED BLOOD COUNT 3.92 10^6/uL (3.72-5.28); RED CELL DISTRIBUTION WIDTH 14.2 % (11.5-14.0); SEGMENTED NEUTROPHILS % (AUTO) 77.2 % (42-78); TOTAL CELLS COUNTED % (AUTO) 100 %; WHITE BLOOD COUNT 12.5 10^3/uL (4.0-10.5)
[2019-07-13 22:05] LABS: ALBUMIN 3.6 g/dL (3.5-5.0); ALKALINE PHOSPHATASE 71 U/L (38-126); ANION GAP 6 (5-19); ASPARTATE AMINO TRANSFERASE 46 U/L (14-36); BILIRUBIN,DIRECT 0.1 mg/dL (0.0-0.4); BILIRUBIN,TOTAL 0.5 mg/dL (0.2-1.3); BLOOD UREA NITROGEN 10 mg/dL (7-20); CARBON DIOXIDE 25 mmol/L (22-30); CHLORIDE 106 mmol/L (98-107); GLUCOSE 89 mg/dL (75-110); POTASSIUM 3.5 mmol/L (3.6-5.0); TOTAL PROTEIN 6.8 g/dL (6.3-8.2)
[2019-07-13] MEDS ORDERED: DIPHENHYDRAMINE HCL 50 MG/ML VIAL IM ONE (22:07)
[2019-07-13 22:08] LABS: ACETAMINOPHEN < 10 ug/mL (10-30); ALCOHOL < 10 mg/dL (NONE DETECTED); SALICYLATE < 1.0 mg/dL (2.0-20.0)
[2019-07-13 22:58] LABS: APPEARANCE,URINE CLOUDY; BILIRUBIN,URINE NEGATIVE (NEGATIVE); COLOR,URINE YELLOW; GLUCOSE, URINE NEGATIVE (NEGATIVE); KETONES,URINE NEGATIVE (NEGATIVE); LEUKOCYTE ESTERASE,URINE LARGE (NEGATIVE); NITRITE,URINE NEGATIVE (NEGATIVE); PROTEIN,URINE NEGATIVE (NEGATIVE); URINE SPECIFIC GRAVITY 1.009; UROBILINOGEN,URINE NEGATIVE mg/dL (<2.0)
[2019-07-13 23:07] LABS: URINE AMPHETAMINES SCREEN NEGATIVE; URINE BARBITURATES SCREEN NEGATIVE; URINE BENZODIAZEPINES SCREEN NEGATIVE; URINE COCAINE SCREEN NEGATIVE; URINE METHADONE SCREEN NEGATIVE; URINE PHENCYCLIDINE SCREEN NEGATIVE
[2019-07-13 23:09] LABS: URINE MARIJUANA (THC) SCREEN UNCONFIRMED POSITIVE
--- NOTE | 2019-07-13 23:56 | EKG REPORT ---
SEVERITY:- BORDERLINE ECG - SINUS RHYTHM PROBABLE LEFT ATRIAL ABNORMALITY : Confirmed by: Krystal He MD 13-Jul-2019 23:56:37
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
[2019-07-14] MEDS ORDERED: HALOPERIDOL DECANOATE INJ 100 MG/1 ML VIAL IM PRN (11:07)
[2019-07-14] MEDS ORDERED: HALOPERIDOL 5 MG TABLET PO SCH (11:10)
[2019-07-14] MEDS ORDERED: BENZTROPINE MESYLATE 1 MG TABLET PO SCH (12:00)
--- NOTE | 2019-07-14 12:03 | ER Document Report ---
Doctor's Note Notes: 07/14/19 11:59 Chart reviewed, IVC noted, patient rounded on. Patient is very calm at this time. She is confused as to why an IVC was placed on her. She reports she is been IVC multiple times since she was a teenager. She denies suicidal or homicidal ideations. She denies other symptoms such as fever vomiting diarrhea pain with void. Latasha, mental health provider requesting additional medications Haldol, haldol, Cogentin. PHYSICAL EXAMINATION: GENERAL: Well-appearing and in no acute distress HEAD: Atraumatic, normocephalic. EYES: Pupils equal round and reactive to light, extraocular movements intact, sclera anicteric, conjunctiva are normal. ENT: nares patent, oropharynx clear without exudates. Moist mucous membranes. NECK: Normal range of motion, supple without lymphadenopathy LUNGS: CTAB and equal. No wheezes rales or rhonchi. HEART: Regular rate and rhythm without murmurs ABDOMEN: Soft, no tenderness. No guarding, no rebound EXTREMITIES: Normal range of motion, no pitting edema. No cyanosis. NEUROLOGICAL: Cranial nerves grossly intact. Normal sensory/motor exams. PSYCH: Normal mood, normal affect. SKIN: Warm, Dry, normal turgor, no rashes or lesions noted 07/14/19 17:07 Patient has been calm all day. Plan is to discharge her home to the safety of her mother. Behavioral health advises discharge home with Haldol 5 mg p.o. twice daily and Cogentin 1 mg p.o. daily. Requesting a 2-week prescription. 07/14/19 19:06 Patient discharged home into the care of her family with two prescriptions. Dictation of this chart was performed using voice recognition software; therefore, there may be some unintended grammatical errors.
[2019-07-14 19:14] VITALS: BP 162/98
[2019-07-15] MEDS ORDERED: BENZTROPINE MESYLATE 1 MG TABLET PO SCH (11:10)
== END 2019-07-14 19:03 | disposition home or self-care (01) ==
LOC: ER 18:59
DX: F22 Delusional disorders (principal); F91.1 Conduct disorder, childhood-onset type; I10 Essential (primary) hypertension
CPT/HCPCS: 93005; 99285; 96372; 36415; 80307 ×4; 84703; 85025; 80053; 81001; 93010; A9270 ×2; J1631; J1200; J1630; J2060

== ENCOUNTER 2019-07-23 11:10 | Emergency (ER) | payer MEDICARE, MEDICAID ==
[2019-07-23] MEDS ORDERED: DIPHENHYDRAMINE HCL 25 MG CAPSULE PO ONE ×2 (14:02→16:38)
[2019-07-23] MEDS ORDERED: DEXAMETHASONE SOD PHOS INJ 10 MG/1 ML VIAL IM ONE ×2 (14:02→16:38)
--- NOTE | 2019-07-23 14:05 | ER Document Report ---
ED Medical Screen (RME) - General Chief Complaint: Allergic Reaction Stated Complaint: POSSIBLE ALLERGIC REACTION Time Seen by Provider: 07/23/19 14:00 Primary Care Provider: FRANTZ ZAMORA NP [Primary Care Provider] - Follow up as needed Mode of Arrival: Ambulatory Information source: Patient Notes: This 34-year-old female presents today with reports she is having allergic reaction to the Haldol IM shot she received here on July 13. Reports 4 days ago she started having trouble talking. She reports she is swallowing without problems. Denies fever cough vomiting. She has not taken anything for the symptoms. Patient has a history of bipolar. Denies suicidal or homicidal ideations. I have greeted and performed a rapid initial assessment of this patient. A comprehensive ED assessment and evaluation of the patient, analysis of test results and completion of the medical decision making process will be conducted by additional ED providers. Dictation of this chart was performed using voice recognition software; therefore, there may be some unintended grammatical errors. TRAVEL OUTSIDE OF THE [place] IN LAST 30 DAYS: No - Related Data Allergies/Adverse Reactions: lithium [[place]] Allergy (Mild, Verified 10/28/18 14:46) swollen lymph nodes aripiprazole [From Abilify] Allergy (Verified 10/28/18 14:46) fluphenazine enanthate [From Prolixin] Allergy (Verified 10/28/18 14:46) fluphenazine HCl [From Prolixin] Allergy (Verified 10/28/18 14:46) Past Medical History - Past Medical History Cardiac Medical History: Reports: Hx Hypertension Denies: Hx Heart Attack Pulmonary Medical History: Denies: Hx Asthma, Hx Bronchitis, Hx COPD, Hx Pneumonia Neurological Medical History: Denies: Hx Cerebrovascular Accident, Hx Migraine, Hx Seizures Endocrine Medical History: Denies: Hx Diabetes Mellitus Type 1, Hx Diabetes Mellitus Type 2 Renal/ Medical History: Denies: Hx Ovarian Cysts, Hx Peritoneal Dialysis Psychiatric Medical History: Reports: Hx Anxiety, Hx Bipolar Disorder, Hx Depression, Hx Schizophrenia Past Surgical History: Reports: Hx Dilation and Curettage - Therapeutic AB, Hx Gynecologic Surgery - D&C - Immunizations Immunizations up to date: No Hx Diphtheria, Pertussis, Tetanus Vaccination: No Physical Exam - Vital signs Vitals: Temp Pulse Resp BP Pulse Ox 98.3 F 101 H 20 165/95 H 98 07/23/19 11:40 12/16/19 11:40 07/23/19 11:40 07/23/19 11:40 07/23/19 11:40 Course - Vital Signs Vital signs: Temp Pulse Resp BP Pulse Ox 98.3 F 101 H 20 165/95 H 98 07/23/19 11:40 07/23/19 11:40 07/23/19 11:40 07/23/19 11:40 07/23/19 11:40 Doctor's Discharge - Discharge Referrals: FRANTZ ZAMORA [facility] [Primary Care Provider] - Follow up as needed
[2019-07-23 15:34] LABS: APPEARANCE,URINE CLEAR; BILIRUBIN,URINE NEGATIVE (NEGATIVE); COLOR,URINE YELLOW; GLUCOSE, URINE NEGATIVE (NEGATIVE); KETONES,URINE NEGATIVE (NEGATIVE); LEUKOCYTE ESTERASE,URINE TRACE (NEGATIVE); NITRITE,URINE NEGATIVE (NEGATIVE); PROTEIN,URINE NEGATIVE (NEGATIVE); URINE SPECIFIC GRAVITY 1.017; UROBILINOGEN,URINE NEGATIVE mg/dL (<2.0)
--- NOTE | 2019-07-23 17:20 | ER Document Report ---
HPI - HPI Patient complains to provider of: Right buttock tenderness Time Seen by Provider: 07/23/19 14:00 Onset: Other - 4 days Pain Level: Denies Context: Patient states she received an IM injection to the right buttock on 07/13/2019. Patient states that over the past 4 days the area has become tender red and firm. Patient denies any history of MRSA or abscess. Patient denies any fever cough or cold symptoms. Patient denies any nausea vomiting or diarrhea. Patient feels as though she may be having allergic reaction to the injection. Patient also states that she had recent unprotected intercourse and would like to be tested for STDs. Patient denies any vaginal bleeding or discharge. Patient denies any skin lesions to the perineum. Associated Symptoms: Other - Right buttock tenderness with erythema. denies: Chest pain, Fever, Headache, Shortness of breath Exacerbated by: Denies Relieved by: Denies Similar symptoms previously: No Recently seen / treated by doctor: No - ROS ROS below otherwise negative: Yes Systems Reviewed and Negative: Yes All other systems reviewed and negative - CONSTITUTIONAL Constitutional: DENIES: Fever, Chills - EENT EENT: DENIES: Sore Throat, Congestion - NEURO Neurology: DENIES: Weakness - GASTROINTESTINAL Gastrointestinal: DENIES: Abdominal Pain, Nausea, Patient vomiting - URINARY Urinary: DENIES: Dysuria, Urgency - REPRODUCTIVE Reproductive: DENIES: :, Abnormal bleeding / discharge - DERM Skin Color: Erythema - Tenderness, erythema to right buttock Past Medical History - General Information source: Patient - Social History Smoking Status: Current Every Day Smoker Frequency of alcohol use: Occasional Drug Abuse: Marijuana Lives with: Family Family History: Reviewed & Not Pertinent Patient has suicidal ideation: No Patient has homicidal ideation: No - Past Medical History Cardiac Medical History: Reports: Hx Hypertension Psychiatric Medical History: Reports: Hx Anxiety, Hx Bipolar Disorder, Hx Depression, Hx Schizophrenia Past Surgical History: Reports: Hx Dilation and Curettage - Therapeutic AB, Hx Gynecologic Surgery - D&C - Immunizations Immunizations up to date: No Hx Diphtheria, Pertussis, Tetanus Vaccination: No Vertical Provider Document - CONSTITUTIONAL Agree With Documented VS: Yes Exam Limitations: No Limitations General Appearance: WD/WN - INFECTION CONTROL TRAVEL OUTSIDE OF THE [place] IN LAST 30 DAYS: No - HEENT HEENT: Atraumatic, Normocephalic - NECK Neck: Normal Inspection - RESPIRATORY Respiratory: Breath Sounds Normal, No Respiratory Distress - CARDIOVASCULAR Cardiovascular: Regular Rate, Regular Rhythm - GI/ABDOMEN Gastrointestinal: Abdomen Soft - MUSCULOSKELETAL/EXTREMETIES Musculoskeletal/Extremeties: BRENDAN BIRD - NEURO Level of Consciousness: Awake, Alert, Appropriate Motor/Sensory: No Motor Deficit - DERM Integumentary: Warm, Dry, Abscess - Tenderness, erythema and induration to right buttock Course - Re-evaluation Re-evalutation: 07/23/19 17:37 Patient states that she needs to leave as she has other things to do today. Patient does not want to have ultrasound performed and does not want incision and drainage procedure at this time. Patient states she would take antibiotics to treat her right buttock tenderness and redness. Patient does not want prophylactic treatment for any STDs at this time. Patient prefers to return tomorrow and get results of her tests and treatment at that time. Discussed with patient treatment options. Patient is agreeable with receiving antibiotics here and a prescription to go home. Discussed worsening symptoms that patient should return immediately for. Patient verbalized understanding and agrees with plan of care. - Vital Signs Vital signs: Temp Pulse Resp BP Pulse Ox 98.3 F 101 H 20 165/95 H 98 07/23/19 14:01 07/23/19 11:40 07/23/19 14:01 07/23/19 11:40 07/23/19 14:01 - Laboratory Laboratory results interpreted by me: 07/23/19 11:35 Ur Leukocyte Esterase TRACE H Discharge - Discharge Clinical Impression: Abscess, Concern about STD in female without diagnosis Condition: Stable Disposition: HOME, SELF-CARE Instructions: Abscess ([facility]), Cephalexin ([facility]), Trimethoprim-Sulfa ([facility]), Warm Packs ([facility]) Additional Instructions: Return immediately for any new or worsening symptoms Followup with your primary care provider, call tomorrow to make a followup appointment Apply warm compresses to the buttock area Prescriptions: Sulfamethoxazole/Trimethoprim [Bactrim Ds Tablet] 1 each PO BID #20 tablet Cephalexin Monohydrate [Keflex 500 mg Capsule] 500 mg PO Q6H 5 Days capsule Ibuprofen [Motrin 800 mg Tablet] 800 mg PO Q8H PRN #15 tab PRN Reason: Referrals: FRANTZ ZAMORA NP [Primary Care Provider] - Follow up as needed [facility] [NO LOCAL MD] - Follow up as needed
[2019-07-23] MEDS ORDERED: IBUPROFEN 800 MG TABLET PO ONE (17:36)
[2019-07-23] MEDS ORDERED: CEPHALEXIN 500 MG CAPSULE PO ONE (17:36)
[2019-07-23] MEDS ORDERED: SULFAMETHOXAZOLE/TRIMETHOPRIM 800-160 MG TABLET PO ONE (17:36)
[2019-07-23 17:51] VITALS: BP 179/101
[2019-07-23 19:22] LABS: CHLAM PCR NOT DETECTED (NOT DETECT)
[2019-07-23 21:11] LABS: BACTERIA (WET MOUNT) 3+ BACTERIA SEEN; EPITHELIALS (WET MOUNT) 3+ EPITHELIALS SEEN; T.VAGINALIS (WET MOUNT) NO TRICHOMONAS SEEN; WBCS (WET MOUNT) 1+ WBCS SEEN; YEAST (WET MOUNT) NO YEAST SEEN
== END 2019-07-23 18:10 | disposition home or self-care (01) ==
LOC: ER 11:10
DX: L02.31 Cutaneous abscess of buttock (principal); Z20.2 Contact with and (suspected) exposure to infections with a predominantly sexual mode of transmission; F12.10 Cannabis abuse, uncomplicated; F17.200 Nicotine dependence, unspecified, uncomplicated; I10 Essential (primary) hypertension
CPT/HCPCS: 99283; 96372; 87210; 81001; 87491; 87591; A9270 ×4; J1100

== ENCOUNTER 2019-07-29 00:58 | Emergency (ER) | payer MEDICARE, MEDICAID ==
[2019-07-29 03:29] VITALS: BP 136/86
--- NOTE | 2019-07-30 08:05 | ER Document Report ---
Entered by JIAN VOSS SCRIBE 07/29/19 0234 Acting as scribe for:JESSICA GEE IV, MD ED General - General Chief Complaint: Skin Problem Stated Complaint: SKIN IRRITATION Time Seen by Provider: 07/29/19 02:09 Primary Care Provider: FRANTZ ZAMORA NP [Primary Care Provider] - Follow up as needed Mode of Arrival: Ambulatory Information source: Patient Notes: This 34 year old female patient presents to the emergency department today with complaints of a possible allergic reaction. Patient has been seen for this in the past. The area of skin in question is on her right buttocks where she received an injection over one month ago. TRAVEL OUTSIDE OF THE [place] IN LAST 30 DAYS: No - Related Data Allergies/Adverse Reactions: lithium [[place]] Allergy (Mild, Verified 07/29/19 01:06) swollen lymph nodes aripiprazole [From Abilify] Allergy (Verified 07/29/19 01:06) fluphenazine enanthate [From Prolixin] Allergy (Verified 07/29/19 01:06) fluphenazine HCl [From Prolixin] Allergy (Verified 07/29/19 01:06) Past Medical History - General Information source: Patient - Social History Smoking Status: Current Every Day Smoker Cigarette use (# per day): Yes Frequency of alcohol use: Social Drug Abuse: Marijuana Lives with: Family Family History: Reviewed & Not Pertinent Patient has suicidal ideation: No Patient has homicidal ideation: No - Past Medical History Cardiac Medical History: Reports: Hx Hypertension Psychiatric Medical History: Reports: Hx Anxiety, Hx Bipolar Disorder, Hx Depression, Hx Schizophrenia Past Surgical History: Reports: Hx Dilation and Curettage - Therapeutic AB - Immunizations Immunizations up to date: No Hx Diphtheria, Pertussis, Tetanus Vaccination: No Review of Systems - Review of Systems Constitutional: No symptoms reported EENT: No symptoms reported Cardiovascular: No symptoms reported Respiratory: No symptoms reported Gastrointestinal: No symptoms reported Genitourinary: No symptoms reported Female Genitourinary: No symptoms reported Musculoskeletal: No symptoms reported Skin: See HPI, Rash Hematologic/Lymphatic: No symptoms reported Neurological/Psychological: No symptoms reported -: Yes All other systems reviewed and negative Physical Exam - Vital signs Vitals: Temp Pulse Resp BP Pulse Ox 98.4 F 86 16 136/85 H 99 07/29/19 01:12 07/29/19 01:12 07/29/19 01:12 07/29/19 01:12 07/29/19 01:12 - Notes Notes: Physical Exam: General: Alert, in a deep sleep with snoring. HEENT: Normocephalic. Atraumatic. PERRL. Extraocular movements intact. Oropharynx clear. Neck: Supple. Non-tender. Respiratory: No respiratory distress. Clear and equal breath sounds bilaterally. Cardiovascular: Regular rate and rhythm. Abdominal: Normal Inspection. Non-tender. No distension. Normal Bowel Sounds. Back: No gross abnormalities. Extremities: Moves all four extremities. Upper extremities: Normal inspection. Normal ROM. Lower extremities: Normal inspection. No edema. Normal ROM. Neurological: Normal cognition. AAOx4. Normal speech. Psychological: Normal affect. Normal Mood. Skin: Macular eczematous appearing area of skin over right gluteus. Course - Vital Signs Vital signs: Temp Pulse Resp BP Pulse Ox 98.4 F 86 16 136/85 H 99 07/29/19 01:15 07/29/19 01:15 07/29/19 01:15 07/29/19 01:15 07/29/19 01:15 Discharge - Discharge Clinical Impression: Dermatitis Condition: Good Disposition: HOME, SELF-CARE Instructions: Topical Steroid Cream or Ointment ([facility]) Prescriptions: Triamcinolone Acetonide 15 gm TP TID 7 Days #15 oint...g. Referrals: FRANTZ ZAMORA NP [Primary Care Provider] - Follow up as needed I personally performed the services described in the documentation, reviewed and edited the documentation which was dictated to the scribe in my presence, and it accurately records my words and actions.
== END 2019-07-29 02:42 | disposition home or self-care (01) ==
LOC: ER 00:58
DX: F41.9 Anxiety disorder, unspecified (principal); T43.4X5A Adverse effect of butyrophenone and thiothixene neuroleptics, initial encounter; R47.89 Other speech disturbances; Y92.9 Unspecified place or not applicable; I10 Essential (primary) hypertension
CPT/HCPCS: 99283

== ENCOUNTER 2019-07-30 10:30 | Emergency (ER) | payer MEDICARE, MEDICAID ==
--- NOTE | 2019-07-30 10:50 | ER Document Report ---
ED Medical Screen (RME) - General Chief Complaint: Psych Problem Stated Complaint: PSYCH EVAL Time Seen by Provider: 07/30/19 10:37 Primary Care Provider: FRANTZ ZAMORA NP [Primary Care Provider] - Follow up as needed Information source: Patient Notes: Patient presents very anxious and restless at bedside. Patient refusing to go into her room. Patient states that she feels like she is having adverse reaction due to Haldol that she received on a previous ER visit. She was seen recently for tenderness and redness to the right buttocks where she had received the injection. Patient is currently taking Bactrim for that. Patient also complains of knee pain and throat discomfort. Patient feels as though she is having difficulty getting the words that she wants to say about. I have greeted and performed a rapid initial assessment of this patient. A comprehensive ED assessment and evaluation of the patient, analysis of test results and completion of the medical decision making process will be conducted by additional ED providers. TRAVEL OUTSIDE OF THE [place] IN LAST 30 DAYS: No - Related Data Allergies/Adverse Reactions: lithium [[place]] Allergy (Mild, Verified 07/29/19 01:06) swollen lymph nodes aripiprazole [From Abilify] Allergy (Verified 07/29/19 01:06) fluphenazine enanthate [From Prolixin] Allergy (Verified 07/29/19 01:06) fluphenazine HCl [From Prolixin] Allergy (Verified 07/29/19 01:06) Past Medical History - Past Medical History Cardiac Medical History: Reports: Hx Hypertension Denies: Hx Heart Attack Pulmonary Medical History: Denies: Hx Asthma, Hx Bronchitis, Hx COPD, Hx Pneumonia Neurological Medical History: Denies: Hx Cerebrovascular Accident, Hx Migraine, Hx Seizures Endocrine Medical History: Denies: Hx Diabetes Mellitus Type 1, Hx Diabetes Mellitus Type 2 Renal/ Medical History: Denies: Hx Ovarian Cysts, Hx Peritoneal Dialysis Psychiatric Medical History: Reports: Hx Anxiety, Hx Bipolar Disorder, Hx Depression, Hx Schizophrenia Past Surgical History: Reports: Hx Dilation and Curettage - Therapeutic AB, Hx Gynecologic Surgery - D&C - Immunizations Immunizations up to date: No Hx Diphtheria, Pertussis, Tetanus Vaccination: No Physical Exam - Psychological Associated symptoms: Agitated, Anxious, Manic Doctor's Discharge - Discharge Referrals: ZAMORA,FRANTZ, VENEER MARKER [Primary Care Provider] - Follow up as needed
[2019-07-30 11:07] VITALS: BP 159/101
--- NOTE | 2019-07-30 11:10 | ER Document Report ---
ED General <MATT CLAROS - Last Filed: 07/30/19 13:02> - General TRAVEL OUTSIDE OF THE [place] IN LAST 30 DAYS: No <ARYA ROPER - Last Filed: 07/30/19 15:47> - General Chief Complaint: cannot talk Stated Complaint: PSYCH EVAL Time Seen by Provider: 07/30/19 10:37 Primary Care Provider: FRANTZ ZAMORA NP [Primary Care Provider] - Follow up as needed - [facility] Notes: 34-year-old female with history of bipolar 1 with psychotic features to the emergency department with complaints of possible allergic reaction to her Haldol injection and difficulty speaking. She states that this is been ongoing since July 16. She had her Haldol injection on July 14. She states that she feels like "the neurotransmitters are not talking to her mouth correctly". She states that people have difficulty understanding her. She states that she has been feeling like she has been getting worse since she had the injection. She denies any SI, HI, hallucinations. She is well-known to the behavioral health team. Of note she is taking Bactrim for a possible abscess to her buttocks that was prescribed to her yesterday. (ARYA ROPER) - Related Data Allergies/Adverse Reactions: lithium [[place]] Allergy (Mild, Verified 07/29/19 01:06) swollen lymph nodes aripiprazole [From Abilify] Allergy (Verified 07/29/19 01:06) fluphenazine enanthate [From Prolixin] Allergy (Verified 07/29/19 01:06) fluphenazine HCl [From Prolixin] Allergy (Verified 07/29/19 01:06) Past Medical History - General Information source: Patient - Social History Smoking Status: Never Smoker Chew tobacco use (# tins/day): No Frequency of alcohol use: None Drug Abuse: None Family History: Reviewed & Not Pertinent Patient has suicidal ideation: No Patient has homicidal ideation: No - Past Medical History Cardiac Medical History: Reports: Hx Hypertension Denies: Hx Heart Attack Pulmonary Medical History: Denies: Hx Asthma, Hx Bronchitis, Hx COPD, Hx Pneumonia Neurological Medical History: Denies: Hx Cerebrovascular Accident, Hx Migraine, Hx Seizures Endocrine Medical History: Denies: Hx Diabetes Mellitus Type 1, Hx Diabetes Mellitus Type 2 Renal/ Medical History: Denies: Hx Ovarian Cysts, Hx Peritoneal Dialysis Psychiatric Medical History: Reports: Hx Anxiety, Hx Bipolar Disorder, Hx Depression, Hx Schizophrenia Past Surgical History: Reports: Hx Dilation and Curettage - Therapeutic AB, Hx Gynecologic Surgery - D&C - Immunizations Immunizations up to date: No Hx Diphtheria, Pertussis, Tetanus Vaccination: No <ARYA ROPER - Last Filed: 07/30/19 15:47> Review of Systems - Review of Systems Constitutional: denies: Chills, Fever EENT: No symptoms reported Cardiovascular: denies: Chest pain, Palpitations, Heart racing, Syncope, Dizziness, Lightheaded Respiratory: denies: Cough, Short of breath Gastrointestinal: denies: Abdominal pain, Diarrhea, Nausea, Vomiting Genitourinary: No symptoms reported Musculoskeletal: No symptoms reported Hematologic/Lymphatic: No symptoms reported Neurological/Psychological: See HPI, Speech impairment. denies: Hallucinations, Homicidal ideation, Suicidal ideation -: Yes All other systems reviewed and negative <ARYA ROPER - Last Filed: 07/30/19 15:47> Physical Exam - Vital signs Interpretation: Hypertensive, Tachycardic - General General appearance: Alert, Anxious - HEENT Head: Normocephalic, Atraumatic Eyes: Normal Pupils: PERRL Neck: Normal, Supple - Respiratory Respiratory status: No respiratory distress Chest status: Nontender Breath sounds: Normal. No: Rales, Rhonchi, Stridor, Wheezing Chest palpation: Normal - Cardiovascular Rhythm: Regular Heart sounds: Normal auscultation Murmur: No - Abdominal Inspection: Normal Distension: No distension Bowel sounds: Normal Tenderness: Nontender Organomegaly: No organomegaly - Neurological Neuro grossly intact: Yes Cognition: Normal Orientation: AAOx4 Valeri Coma Scale Eye Opening: Spontaneous [place] Coma Scale Verbal: Oriented Valeri Coma Scale Motor: Obeys Commands [place]ard Coma Scale Total: 15 Speech: Normal. No: Dysarthria, Expressive aphasia, Receptive aphasia Cranial nerves: Normal. No: Facial palsy, Gaze palsy, Sensory deficit, Tongue deviation Cerebellar coordination: Normal. No: Gait ataxia Motor strength normal: LUE, RUE, LLE, RLE Additional motor exam normals: Equal cylinder checker. No: Pronator drift - Patient does not have dysarthria. Her speech is very clear and she is able to articulate herself well Sensory: Normal - Psychological Associated symptoms: Anxious, Labile <ARYA ROPER - Last Filed: 07/30/19 15:47> - Vital signs Vitals: Temp Pulse Resp BP Pulse Ox 97.9 F 108 H 24 H 159/101 H 100 07/30/19 10:30 07/30/19 10:30 07/30/19 10:30 07/30/19 10:30 07/30/19 10:30 - General Notes: Patient is very anxious. She is pacing outside of her room and gets upset when she talks about her symptoms. (ARYA ROPER) - Psychological Notes: Patient is pacing outside of her room. However she is easily redirected and calmed by calm and thoughtful conversation. She denies SI, HI, hallucinations. (ARYA ROPER) Course - Laboratory Result Diagrams: 07/30/19 11:00 07/30/19 11:00 <MATT CLAROS - Last Filed: 07/30/19 13:02> - Laboratory Result Diagrams: 07/30/19 11:00 07/30/19 11:00 <ARYA ROPER - Last Filed: 07/30/19 15:47> - Re-evaluation Re-evalutation: 07/30/19 Patient feeling much better after Thorazine. She states that her symptoms have been relieved. She would like to be discharged home. Impression: Anxiety. Patient feeling better after Thorazine. She is well-known to the behavioral health team. She is not having any SI, HI, hallucinations. She is safe for discharge home. We will have her follow-up outpatient. (ARYA ROPER) - Vital Signs Vital signs: Temp Pulse Resp BP Pulse Ox 97.9 F 108 H 24 H 159/101 H 100 07/30/19 10:30 07/30/19 10:30 07/30/19 10:30 07/30/19 10:30 07/30/19 10:30 - Laboratory Laboratory results interpreted by me: 07/30/19 07/30/19 11:00 11:00 WBC 10.6 H Hgb 11.9 L Hct 35.2 L RDW 14.2 H AST 50 H Creatine Kinase 783 H Discharge <MATT CLAROS - Last Filed: 07/30/19 13:02> <ROPERARYA - Last Filed: 07/30/19 15:47> - Discharge Clinical Impression: Anxiety Condition: Stable Disposition: HOME, SELF-CARE Additional Instructions: You have been evaluated both medical and behavioral teams have been deemed appropriate for discharge. Please continue following up with your outpatient mental health provider. Anxiety The physician feels that some of your health problems are being caused by anxiety. Anxiety affects your health in many ways. Anxiety alone can cause palpitations, sweats, chest pains, abdominal pains, shortness of breath, and headaches. It contributes to ulcer disease, high blood pressure, irritable bowel syndrome, and has been shown to cause flare-ups of many other diseases. Anxiety is not a simple disorder to treat. If the anxiety is due to recent life stresses, you may simply need time to "work through" the changes. If the anxiety is due to an underlying unhappiness with yourself or due to psychiatric disturbance, professional help will be needed. Your physician can refer you for further help if needed. Anti-anxiety medication is occasionally given if the stress is acute or if you are having trouble sleeping. Chronic or frequent use of these medications is not a good idea because the body becomes reliant on it, preventing you from dealing with life's normal stresses. AT ANY TIME, IF YOUR SYMPTOMS CHANGE SIGNIFICANTLY OR WORSEN OR YOU DEVELOP NEW SYMPTOMS, RETURN TO THE EMERGENCY DEPARTMENT IMMEDIATELY FOR RE-EVALUATION. Referrals: FRANTZ ZAMORA NP [Primary Care Provider] - Follow up as needed
--- NOTE | 2019-07-30 11:10 | PSYCHOLOGICAL NOTE ---
Psych Note - Psych Note Date seen by psych provider: 07/30/19 Time seen by psych provider: 10:50 Psych Note: Reason For Consult:Anxiety Consent Permissions:none provided Patient is observed pacing up and down the hallway reporting pain in her legs from her varicose veins. Patient can be seen sweating and states that she is having difficulty getting words out i.e. reporting disorganized thought processes. Patient is able to carry on organized and linear conversation. Patient states that has since she had Haldol shot during her previous visit (07/14/2019) she has been having difficulties and feels that she is allergic. Clinician notes patient does have a history of stating she is allergic to psychotropic medications as she is traditionally noncompliant in her treatment. Patient is clearly under distress at this time however denies any thoughts of wanting to harm herself or others. Patient states that her trigger is her family and that when she is around them she has breakthrough of her psychiatric symptoms. Patient is alert and orientated to person, place, time and circumstance. Mood is anxious with congruent affect as evidenced by pacing, sweating and pressured speech. Patient denies suicidal and homicidal ideation. Delusions are absent and behaviors congruent with an intact reality based presentation ie organized and linear thought process. Eye contact is well-maintained. Conversational speech is overall within normal rate, tone and prosody; clinician notes patient can speak loudly at times but this is her baseline. Intellectual abilities appear to be within the average range. Attention and concentration are fair. Insight, judgment, impulse control are fair. Diagnosis: Bipolar I with psychotic features per history Medication recommendations per [facility]'s contracted psychiatrist Dr. Lyn RAO are as follows Thorazine 50mg Once for agitation Impression\plan: Patient is cleared from acute psychiatric services. Patient denies suicidal/homicidal ideation. She is not demonstrating any behaviors indicating she is responding to internal stimuli. She is able to engage in organized, linear and logical conversation and maintains good eye contact. Clinician notes patient has a history of noncompliance with medications and treatment to include higher level services such as ACTT and CUSTOMER SUPPORT ASSISTANT. Medication recommendations have been provided; however, the patient declines currently. This is the patient's right. If patient chooses to change her mind she understands this option is available. Dr. Burger was consulted to care management of this patient; attending physicians in agreement with recommendations and disposition.
[2019-07-30 11:19] LABS: ABSOLUTE BASOPHILS # (AUTO) 0.1 10^3/uL (0.0-0.2); ABSOLUTE EOSINOPHILS # (AUTO) 0.2 10^3/uL (0.0-0.6); ABSOLUTE LYMPHOCYTES (AUTO) 2.6 10^3/uL (0.5-4.7); ABSOLUTE MONOCYTES (AUTO) 0.6 10^3/uL (0.1-1.4); BASOPHILS % (AUTO) 0.8 % (0-2); HEMATOCRIT 35.2 % (36.0-47.0); HEMOGLOBIN 11.9 g/dL (12.0-15.5); MEAN CORPUSCULAR HEMOGLOBIN 29.8 pg (27.0-33.4); MEAN CORPUSCULAR HGB CONC 33.9 g/dL (32.0-36.0); MEAN CORPUSCULAR VOLUME 88 fl (80-97); MONOCYTES % (AUTO) 5.7 % (3-13); PLATELET COUNT 341 10^3/uL (150-450); RED CELL DISTRIBUTION WIDTH 14.2 % (11.5-14.0); SEGMENTED NEUTROPHILS % (AUTO) 66.5 % (42-78); TOTAL CELLS COUNTED % (AUTO) 100 %; WHITE BLOOD COUNT 10.6 10^3/uL (4.0-10.5)
[2019-07-30 11:48] LABS: ALBUMIN 3.8 g/dL (3.5-5.0); ALKALINE PHOSPHATASE 69 U/L (38-126); ANION GAP 12 (5-19); ASPARTATE AMINO TRANSFERASE 50 U/L (14-36); BILIRUBIN,DIRECT 0.2 mg/dL (0.0-0.4); BILIRUBIN,TOTAL 0.3 mg/dL (0.2-1.3); BLOOD UREA NITROGEN 14 mg/dL (7-20); CALCIUM 9.2 mg/dL (8.4-10.2); CARBON DIOXIDE 24 mmol/L (22-30); CHLORIDE 102 mmol/L (98-107); CREATINE KINASE 783 U/L (30-135); GLUCOSE 89 mg/dL (75-110); POTASSIUM 4.4 mmol/L (3.6-5.0); TOTAL PROTEIN 7.4 g/dL (6.3-8.2)
[2019-07-30] MEDS ORDERED: CHLORPROMAZINE HCL 50 MG TABLET PO ONE (11:52)
[2019-07-30] MEDS ORDERED: IBUPROFEN 600 MG TABLET PO ONE (12:06)
[2019-07-30] MEDS ORDERED: IBUPROFEN 800 MG TABLET PO ONE (12:30)
== END 2019-07-30 13:27 | disposition home or self-care (01) ==
LOC: ER 10:30
DX: F41.9 Anxiety disorder, unspecified (principal); F31.9 Bipolar disorder, unspecified; Z79.899 Other long term (current) drug therapy; I10 Essential (primary) hypertension
CPT/HCPCS: 99285; 36415; 82550; 85025; 80053; A9270 ×2; J3490

== ENCOUNTER 2019-07-31 17:43 | Emergency (ER) | payer MEDICARE, MEDICAID ==
[2019-07-31 18:38] LABS: ABSOLUTE BASOPHILS # (AUTO) 0.1 10^3/uL (0.0-0.2); ABSOLUTE EOSINOPHILS # (AUTO) 0.2 10^3/uL (0.0-0.6); ABSOLUTE LYMPHOCYTES (AUTO) 2.9 10^3/uL (0.5-4.7); ABSOLUTE MONOCYTES (AUTO) 0.8 10^3/uL (0.1-1.4); BASOPHILS % (AUTO) 0.5 % (0-2); EOSINOPHILS % (AUTO) 1.5 % (0-6); HEMATOCRIT 36.2 % (36.0-47.0); HEMOGLOBIN 12.2 g/dL (12.0-15.5); LYMPHOCYTES % (AUTO) 20.6 % (13-45); MEAN CORPUSCULAR HEMOGLOBIN 29.6 pg (27.0-33.4); MEAN CORPUSCULAR HGB CONC 33.6 g/dL (32.0-36.0); MEAN CORPUSCULAR VOLUME 88 fl (80-97); PLATELET COUNT 374 10^3/uL (150-450); RED BLOOD COUNT 4.11 10^6/uL (3.72-5.28); RED CELL DISTRIBUTION WIDTH 14.3 % (11.5-14.0); SEGMENTED NEUTROPHILS % (AUTO) 71.4 % (42-78); TOTAL CELLS COUNTED % (AUTO) 100 %
[2019-07-31 18:58] LABS: ACETAMINOPHEN < 10 ug/mL (10-30); ALBUMIN 4.1 g/dL (3.5-5.0); ALCOHOL < 10 mg/dL (NONE DETECTED); ALKALINE PHOSPHATASE 73 U/L (38-126); ANION GAP 9 (5-19); ASPARTATE AMINO TRANSFERASE 78 U/L (14-36); BILIRUBIN,DIRECT 0.2 mg/dL (0.0-0.4); BILIRUBIN,TOTAL 0.3 mg/dL (0.2-1.3); BLOOD UREA NITROGEN 12 mg/dL (7-20); CALCIUM 9.3 mg/dL (8.4-10.2); CARBON DIOXIDE 25 mmol/L (22-30); CHLORIDE 103 mmol/L (98-107); GLUCOSE 100 mg/dL (75-110); POTASSIUM 4.3 mmol/L (3.6-5.0); SALICYLATE 1.1 mg/dL (2.0-20.0); TOTAL PROTEIN 7.6 g/dL (6.3-8.2)
[2019-07-31 19:18] LABS: APPEARANCE,URINE CLOUDY; BILIRUBIN,URINE NEGATIVE (NEGATIVE); COLOR,URINE YELLOW; GLUCOSE, URINE NEGATIVE (NEGATIVE); KETONES,URINE NEGATIVE (NEGATIVE); LEUKOCYTE ESTERASE,URINE SMALL (NEGATIVE); NITRITE,URINE NEGATIVE (NEGATIVE); PROTEIN,URINE 30 mg/dL (NEGATIVE); URINE SPECIFIC GRAVITY 1.016; UROBILINOGEN,URINE NEGATIVE mg/dL (<2.0)
[2019-07-31 19:30] LABS: URINE AMPHETAMINES SCREEN NEGATIVE; URINE BARBITURATES SCREEN NEGATIVE; URINE BENZODIAZEPINES SCREEN NEGATIVE; URINE COCAINE SCREEN NEGATIVE; URINE METHADONE SCREEN NEGATIVE; URINE PHENCYCLIDINE SCREEN NEGATIVE
[2019-07-31 19:33] LABS: URINE MARIJUANA (THC) SCREEN UNCONFIRMED POSITIVE
--- NOTE | 2019-07-31 20:16 | EKG REPORT ---
SEVERITY:- ABNORMAL ECG - SINUS RHYTHM PROBABLE LEFT ATRIAL ABNORMALITY LEFT VENTRICULAR HYPERTROPHY : Confirmed by: Krystal He MD 31-Jul-2019 20:15:52
--- NOTE | 2019-07-31 20:37 | ER Document Report ---
ED General - General Chief Complaint: Psych Problem Stated Complaint: IVC Time Seen by Provider: 07/31/19 20:03 Primary Care Provider: FRANTZ ZAMORA NP [Primary Care Provider] - Follow up as needed TRAVEL OUTSIDE OF THE [place] IN LAST 30 DAYS: No - HPI Notes: This is a 34-year-old female who presents today under involuntary commitment for psychiatric evaluation. Patient is a very poor historian. She tells me that her mom kicked out of the house so she called law enforcement. Apparently, she was fighting with family earlier today. Patient admits that she has been noncompliant with her medications because she is trying to "get out of my system." She also tells me that she was destined to have 7 children but she has only one. She denies any physical complaints except for urinary frequency. - Related Data Allergies/Adverse Reactions: lithium [[place]] Allergy (Mild, Verified 07/31/19 18:18) swollen lymph nodes aripiprazole [From Abilify] Allergy (Verified 07/31/19 18:18) fluphenazine enanthate [From Prolixin] Allergy (Verified 07/31/19 18:18) fluphenazine HCl [From Prolixin] Allergy (Verified 07/31/19 18:18) Past Medical History - Social History Smoking Status: Unknown if Ever Smoked Family History: Reviewed & Not Pertinent Patient has suicidal ideation: Yes Patient has homicidal ideation: No - Past Medical History Cardiac Medical History: Reports: Hx Hypertension Denies: Hx Heart Attack Pulmonary Medical History: Denies: Hx Asthma, Hx Bronchitis, Hx COPD, Hx Pneumonia Neurological Medical History: Denies: Hx Cerebrovascular Accident, Hx Migraine, Hx Seizures Endocrine Medical History: Denies: Hx Diabetes Mellitus Type 1, Hx Diabetes Mellitus Type 2 Renal/ Medical History: Denies: Hx Ovarian Cysts, Hx Peritoneal Dialysis Psychiatric Medical History: Reports: Hx Anxiety, Hx Bipolar Disorder, Hx Depression, Hx Schizophrenia Past Surgical History: Reports: Hx Dilation and Curettage - Therapeutic AB, Hx Gynecologic Surgery - D&C - Immunizations Immunizations up to date: No Hx Diphtheria, Pertussis, Tetanus Vaccination: No Review of Systems - Review of Systems Cardiovascular: denies: Chest pain, Palpitations Gastrointestinal: denies: Abdominal pain Genitourinary: Frequency Neurological/Psychological: Depression, Anxiety. denies: Suicidal ideation -: Yes All other systems reviewed and negative Physical Exam - Vital signs Vitals: Temp Pulse Resp BP Pulse Ox 97.7 F 117 H 16 151/100 H 95 07/31/19 17:58 07/31/19 17:58 07/31/19 17:58 07/31/19 17:58 07/31/19 17:58 - General General appearance: Appears well, Alert - Respiratory Respiratory status: No respiratory distress Chest status: Nontender Breath sounds: Normal Chest palpation: Normal - Cardiovascular Rhythm: Regular Heart sounds: Normal auscultation Murmur: No - Abdominal Inspection: Normal Distension: No distension Bowel sounds: Normal Tenderness: Nontender Organomegaly: No organomegaly - Back Back: Normal, Nontender - Psychological Associated symptoms: Agitated, Flight of ideas, Manic, Paranoid, Restlessness - Patient has flight of ideas. She appears to be in a manic state. Denies suicidal or homicidal ideation. Course - Re-evaluation Re-evalutation: 07/31/19 20:37 Clinical picture suggest acute manic episode with psychotic features. Will get behavioral health assessment done. - Vital Signs Vital signs: Temp Pulse Resp BP Pulse Ox 97.7 F 117 H 16 151/100 H 95 07/31/19 17:58 07/31/19 17:58 07/31/19 17:58 07/31/19 17:58 07/31/19 17:58 - Laboratory Result Diagrams: 07/31/19 18:23 07/31/19 18:23 Laboratory results interpreted by me: 07/31/19 07/31/19 07/31/19 17:57 18:23 18:23 WBC 14.0 H RDW 14.3 H Absolute Neuts (auto) 10.0 H Sodium 136.9 L AST 78 H Urine Protein 30 H Ur Leukocyte Esterase SMALL H Urine Ascorbic Acid 40 H Salicylates 1.1 L Acetaminophen < 10 L Discharge - Discharge Clinical Impression: Bipolar disease, manic Qualifiers: Current episode severity: unspecified Qualified Code(s): F31.10 - Bipolar d isorder, current episode manic without psychotic features, unspecified Condition: Stable Disposition: OTHER Referrals: FRANTZ ZAMORA, STAFFING OPERATIONS MANAGER [Primary Care Provider] - Follow up as needed
[2019-08-01] MEDS ORDERED: IBUPROFEN 600 MG TABLET PO ONE (00:58)
[2019-08-01 06:43] VITALS: BP 124/76
== END 2019-08-01 13:20 | disposition home or self-care (01) ==
LOC: ER 17:43
DX: F31.10 Bipolar disorder, current episode manic without psychotic features, unspecified (principal); I10 Essential (primary) hypertension
CPT/HCPCS: 93005; 99284; 36415; 80307 ×4; 85025; 80053; 81001; 93010; A9270

== ENCOUNTER 2019-08-13 03:19 | Emergency (ER) | payer MEDICARE, MEDICAID ==
[2019-08-13 03:29] VITALS: BP 166/109
[2019-08-13] MEDS ORDERED: IBUPROFEN 600 MG TABLET PO ONE (03:48)
--- NOTE | 2019-08-13 03:48 | ER Document Report ---
HPI - HPI Time Seen by Provider: 08/13/19 03:40 Pain Level: 5 Context: Patient is a 34-year-old female that comes emergency department for chief complaint of leg pain and lower back pain. She states that she has been walking constantly and now her legs hurt. She denies injury, swelling, fever, redness, infection. She denies numbness. She denies any daily medications, states she was "given shots of Haldol but they do not work and I do not want them anymore". She denies nausea or vomiting. She denies painful urination. She states she thinks she is . Past medical history includes bipolar and schizophrenia. She states she was dropped off here by a friend. - REPRODUCTIVE LMP: 08/03/19 Reproductive: DENIES: : Past Medical History - General Information source: Patient - Social History Smoking Status: Current Every Day Smoker Drug Abuse: None Lives with: Alone Family History: Reviewed & Not Pertinent Patient has suicidal ideation: No Patient has homicidal ideation: No - Past Medical History Cardiac Medical History: Reports: Hx Hypertension Denies: Hx Heart Attack Pulmonary Medical History: Denies: Hx Asthma, Hx Bronchitis, Hx COPD, Hx Pneumonia Neurological Medical History: Denies: Hx Cerebrovascular Accident, Hx Migraine, Hx Seizures Endocrine Medical History: Denies: Hx Diabetes Mellitus Type 1, Hx Diabetes Mellitus Type 2 Renal/ Medical History: Denies: Hx Ovarian Cysts, Hx Peritoneal Dialysis Psychiatric Medical History: Reports: Hx Anxiety, Hx Bipolar Disorder, Hx Depression, Hx Schizophrenia Past Surgical History: Reports: Hx Dilation and Curettage - Therapeutic AB, Hx Gynecologic Surgery - D&C - Immunizations Immunizations up to date: No Hx Diphtheria, Pertussis, Tetanus Vaccination: No Vertical Provider Document - CONSTITUTIONAL General Appearance: WD/WN, No Apparent Distress - INFECTION CONTROL TRAVEL OUTSIDE OF THE [place] IN LAST 30 DAYS: No - HEENT HEENT: Atraumatic, Normal ENT Exam, Normocephalic - NECK Neck: Normal Inspection - RESPIRATORY Respiratory: Breath Sounds Normal, No Respiratory Distress - CARDIOVASCULAR Cardiovascular: Regular Rate, Regular Rhythm. negative: Tachycardia - GI/ABDOMEN Gastrointestinal: Abdomen Soft, Abdomen Non-Tender. negative: Abdomen Tender - BACK Back: Normal Inspection - Non-tender back generally on palpation. No midline tenderness, no saddle anesthesia, no signs of trauma. Normal upper and lower extremity range of motion, normal strength, normal distal neurovascular exam. - MUSCULOSKELETAL/EXTREMETIES Musculoskeletal/Extremeties: MAEW, FROM, Non-Tender - Completely unremarkable lower extremities without bruising, signs of trauma, or other concerning findings. Varicose veins in the back over the calves which are nontender. - NEURO Level of Consciousness: Awake, Alert, Appropriate Motor/Sensory: No Motor Deficit, No Sensory Deficit - DERM Integumentary: Warm, Dry, No Rash Course - Re-evaluation Re-evalutation: Patient is somewhat restless, frequently paces around, denies SI or HI. She is cooperative. She does not appear to be hallucinating or psychotic. She is not febrile or tachycardic. Her leg examination is actually completely benign. No swelling, signs of trauma, tenderness on palpation, erythema, or deficits. Nontender back on exam, urinalysis unremarkable, test negative. Provided with ibuprofen, discussed urine, patient states she is ready to leave. Patient left without waiting for her discharge instructions. - Vital Signs Vital signs: Temp Pulse Resp BP Pulse Ox 97.7 F 81 22 H 166/109 H 100 08/13/19 03:24 08/13/19 03:24 08/13/19 03:24 08/13/19 03:24 08/13/19 03:24 Discharge - Discharge Clinical Impression: Flank pain, Essential hypertension Leg pain Qualifiers: Laterality: bilateral Qualified Code(s): M79.604 - Pain in right leg Condition: Stable Disposition: HOME, SELF-CARE Additional Instructions: Your exam is reassuring, your urinalysis does not show any concerning findings or infection, your test is negative. Take ibuprofen if needed for pain in your legs, rest your legs, continue to hydrate. Your blood pressure is elevated today and needs to be managed, follow-up with primary care referral for additional management. Return for any concerning symptoms including numbness, vomiting, fever, or any other concerning or worsening symptoms. Referrals: [facility] [Provider Group] - Follow up in 1 week
[2019-08-13 04:01] LABS: APPEARANCE,URINE SLIGHTLY-CLOUDY; BILIRUBIN,URINE NEGATIVE (NEGATIVE); COLOR,URINE YELLOW; GLUCOSE, URINE NEGATIVE (NEGATIVE); KETONES,URINE NEGATIVE (NEGATIVE); LEUKOCYTE ESTERASE,URINE NEGATIVE (NEGATIVE); NITRITE,URINE NEGATIVE (NEGATIVE); PROTEIN,URINE NEGATIVE (NEGATIVE); URINE SPECIFIC GRAVITY 1.018; UROBILINOGEN,URINE NEGATIVE mg/dL (<2.0)
== END 2019-08-13 04:07 | disposition home or self-care (01) ==
LOC: ER 03:19
DX: M79.604 Pain in right leg (principal); R10.9 Unspecified abdominal pain; M54.5 Low back pain; I10 Essential (primary) hypertension; F17.200 Nicotine dependence, unspecified, uncomplicated
CPT/HCPCS: 99283; 81025; 81001; A9270

== ENCOUNTER 2019-08-14 15:00 | Emergency (ER) | payer MEDICARE, MEDICAID ==
[2019-08-14 15:25] VITALS: BP 182/107
--- NOTE | 2019-08-14 15:35 | ER Document Report ---
HPI - HPI Patient complains to provider of: Bilateral leg pain Time Seen by Provider: 08/14/19 15:28 Onset: Other - For a year Onset/Duration: Persistent Quality of pain: Achy Context: 34-year-old female presents to the emergency department via EMS for complaints of bilateral leg pain. Reports that she has had varicose veins for a year and they really hurt. Denies fever vomiting diarrhea. Patient reports she has to walk a lot because her car broke. She also is wearing flip-flops because her toes hurt. She was treated for the same complaint yesterday with Motrin. She reports she cannot take Motrin because she is . Associated Symptoms: None Exacerbated by: Denies Relieved by: Denies Similar symptoms previously: Yes Recently seen / treated by doctor: No - REPRODUCTIVE Reproductive: DENIES: : Past Medical History - General Information source: Patient - Social History Smoking Status: Unknown if Ever Smoked Frequency of alcohol use: None Drug Abuse: None Family History: Reviewed & Not Pertinent - Past Medical History Cardiac Medical History: Reports: Hx Hypertension Denies: Hx Heart Attack Pulmonary Medical History: Denies: Hx Asthma, Hx Bronchitis, Hx COPD, Hx Pneumonia Neurological Medical History: Denies: Hx Cerebrovascular Accident, Hx Migraine, Hx Seizures Endocrine Medical History: Denies: Hx Diabetes Mellitus Type 1, Hx Diabetes Mellitus Type 2 Renal/ Medical History: Denies: Hx Ovarian Cysts, Hx Peritoneal Dialysis Psychiatric Medical History: Reports: Hx Anxiety, Hx Bipolar Disorder, Hx Depression, Hx Schizophrenia Past Surgical History: Reports: Hx Dilation and Curettage - Therapeutic AB, Hx Gynecologic Surgery - D&C - Immunizations Immunizations up to date: No Hx Diphtheria, Pertussis, Tetanus Vaccination: No Vertical Provider Document - CONSTITUTIONAL Agree With Documented VS: Yes Exam Limitations: No Limitations General Appearance: WD/WN, No Apparent Distress - INFECTION CONTROL TRAVEL OUTSIDE OF THE [place] IN LAST 30 DAYS: No - HEENT HEENT: Atraumatic, Normocephalic - NECK Neck: Supple - RESPIRATORY Respiratory: No Respiratory Distress - CARDIOVASCULAR Cardiovascular: Regular Rate - MUSCULOSKELETAL/EXTREMETIES Musculoskeletal/Extremeties: MAEW, FROM, Tender - Complains of tenderness to bilateral lower legs. No obvious varicose veins noted no erythema no swelling no warmth - NEURO Level of Consciousness: Awake, Alert, Appropriate Motor/Sensory: No Motor Deficit - DERM Integumentary: Warm, Dry Course - Re-evaluation Re-evalutation: 08/14/19 16:42 34-year-old female with history of schizophrenia bipolar presents emergency department with complaints of bilateral leg pain due to her varicose vein she has had for over a year. No obvious varicose veins noted. Patient left the exam room and was walking around the waiting room. She walked down to the cafeteria got herself a salad and then returned. She requested a prescription for MYRTLE hose. She also requested a cab ride home. Patient was provided with a hardcopy prescription for MYRTLE hose. She was instructed to take Tylenol for the pain. - Vital Signs Vital signs: Temp Pulse Resp BP Pulse Ox 98.6 F 85 15 182/107 H 98 08/14/19 15:24 08/14/19 15:24 08/14/19 15:24 08/14/19 15:24 08/14/19 15:24 Discharge - Discharge Clinical Impression: Bilateral leg pain Condition: Stable Disposition: HOME, SELF-CARE Additional Instructions: *You have been evaluated for bilateral leg pain with reports of varicose veins *Rest your legs frequently elevate *Wear compression hose as indicated *Follow up with your primary care provider within 1 week for recheck *Take Tylenol as indicated for pain *Return to ED for worsening condition, changes, needs Monitor your blood pressure. Your blood pressure was elevated today. This may be because you were anxious, in pain or because you need medication. It is important to follow up with your primary care provider for full evaluation. Forms: Elevated Blood Pressure Referrals: FRANTZ ZAMORA NP [Primary Care Provider] - Follow up in 1 week
== END 2019-08-14 16:21 | disposition home or self-care (01) ==
LOC: ER 15:00
DX: M79.604 Pain in right leg (principal); M79.605 Pain in left leg; I10 Essential (primary) hypertension
CPT/HCPCS: 99283

== ENCOUNTER 2019-08-16 05:25 | Emergency (ER) | payer MEDICARE, MEDICAID ==
[2019-08-16 07:27] LABS: AMORPHOUS SEDIMENT,URINE TRACE /HPF; APPEARANCE,URINE CLOUDY; BILIRUBIN,URINE NEGATIVE (NEGATIVE); CALCIUM OXALATE CRYSTALS,URINE MANY /HPF; COLOR,URINE YELLOW; GLUCOSE, URINE NEGATIVE (NEGATIVE); KETONES,URINE NEGATIVE (NEGATIVE); LEUKOCYTE ESTERASE,URINE NEGATIVE (NEGATIVE); NITRITE,URINE NEGATIVE (NEGATIVE); PROTEIN,URINE NEGATIVE (NEGATIVE); URINE SPECIFIC GRAVITY 1.027
--- NOTE | 2019-08-16 08:33 | ER Document Report ---
ED General - General Chief Complaint: Leg Pain Stated Complaint: LEG PAIN Time Seen by Provider: 08/16/19 08:26 Primary Care Provider: FRANTZ ZAMORA NP [Primary Care Provider] - Follow up as needed Notes: CHIEF COMPLAINT: Cough for 2 weeks, chronic knee pain HPI: 34-year-old female presenting to the emergency department complaining of nonproductive cough for 2 weeks. Also with bilateral leg pain for several weeks. No fever. Patient is a poor historian. Difficult to arouse. When patient is aroused she complains mostly of left knee pain that she states is an ongoing problem for which she takes no medications. She is taken no medications for her upper respiratory symptoms and has continued to smoke despite her illness. No chest pain. No shortness of breath. ROS: See HPI - all other systems were reviewed and are otherwise negative Constitutional: no fever Eyes: no drainage, no blurred vision ENT: no runny nose, no sore throat Cardiovascular: no chest pain Resp: no SOB, + cough GI: no vomiting, no diarrhea, no abdominal pain : no dysuria Integumentary: no rash Allergy: no hives Musculoskeletal: + extremity pain no swelling Neurological: no numbness/tingling, no weakness MEDICATIONS: I agree with the patient medications as charted by the RN. ALLERGIES: I agree with the allergies as charted by the RN. PAST MEDICAL HISTORY/PAST SURGICAL HISTORY: Reviewed and agree as charted by RN. SOCIAL HISTORY: Reviewed and agree as charted by RN. FAMILY HISTORY: No significant familial comorbid conditions directly related to patient complaint EXAM: Reviewed vital signs as charted by RN. CONSTITUTIONAL: Alert and oriented and responds appropriately to questions when awake. Well-appearing; well-nourished HEAD: Normocephalic; atraumatic EYES: Conjunctivae clear, sclerae non-icteric ENT: normal nose; no rhinorrhea; moist mucous membranes; pharynx without lesions noted NECK: Supple without meningismus; non-tender; no cervical lymphadenopathy, no masses CARD: RRR; no murmurs, no clicks, no rubs, no gallops; symmetric distal pulses RESP: Normal chest excursion without splinting or tachypnea; breath sounds clear and equal bilaterally; no wheezes, no rhonchi, no rales, pulse oximetry 100% on room air not hypoxic. Congested cough noted. ABD/GI: Normal bowel sounds; non-distended; soft, non-tender, no rebound, no guarding; no palpable organomegaly or masses. BACK: The back appears normal and is non-tender to palpation, there is no CVA tenderness EXT: Normal ROM in all joints; no cyanosis, no effusions, no edema. There is absolutely no calf pain on palpation. There does not appear to be any edema to the bilateral lower extremities. Minimal tenderness on palpation over the anterior left knee without visible erythema. No ballottement of the patella. Negative anterior drawer sign. No laxity on varus or valgus rotation of the left knee SKIN: Normal color for age and race; warm; dry; good turgor; no acute lesions noted NEURO: Moves all extremities equally; Motor and sensory function intact PSYCH: The patient's mood and manner are appropriate. Grooming and personal hygiene are appropriate. MDM: 34-year-old female who smells strongly of cigarettes presenting for cough for 2 weeks and left knee pain for several weeks. She has no calf pain suggesting DVT. Patient initially thought she was but her test is negative. Congested cough but lung sounds are otherwise clear to auscultation. She is difficult to arouse and I had to re-awaken her several times to evaluate her properly. I will send her for chest x-ray and knee x-ray. He denies drug use TRAVEL OUTSIDE OF THE [place] IN LAST 30 DAYS: No - Related Data Allergies/Adverse Reactions: lithium [B And E] Allergy (Mild, Verified 08/13/19 03:52) swollen lymph nodes aripiprazole [From Abilify] Allergy (Verified 08/13/19 03:52) fluphenazine enanthate [From Prolixin] Allergy (Verified 08/13/19 03:52) fluphenazine HCl [From Prolixin] Allergy (Verified 08/13/19 03:52) Past Medical History - Social History Smoking Status: Current Every Day Smoker Chew tobacco use (# tins/day): No Frequency of alcohol use: Occasional Drug Abuse: None Family History: Reviewed & Not Pertinent Patient has suicidal ideation: No Patient has homicidal ideation: No - Past Medical History Cardiac Medical History: Reports: Hx Hypertension Denies: Hx Heart Attack Pulmonary Medical History: Denies: Hx Asthma, Hx Bronchitis, Hx COPD, Hx Pneumonia Neurological Medical History: Denies: Hx Cerebrovascular Accident, Hx Migraine, Hx Seizures Endocrine Medical History: Denies: Hx Diabetes Mellitus Type 1, Hx Diabetes Mellitus Type 2 Renal/ Medical History: Denies: Hx Ovarian Cysts, Hx Peritoneal Dialysis Psychiatric Medical History: Reports: Hx Anxiety, Hx Bipolar Disorder, Hx Depression, Hx Schizophrenia Past Surgical History: Reports: Hx Dilation and Curettage - Therapeutic AB, Hx Gynecologic Surgery - D&C - Immunizations Immunizations up to date: No Hx Diphtheria, Pertussis, Tetanus Vaccination: No Physical Exam - Vital signs Vitals: Temp Pulse Resp BP Pulse Ox 97.6 F 84 18 178/94 H 100 08/16/19 05:38 08/16/19 05:38 08/16/19 05:38 08/16/19 05:38 08/16/19 05:38 Course - Re-evaluation Re-evalutation: 08/16/19 10:38 Itching studies do not show evidence of pneumonia or fracture. Will place patient on anti-inflammatory for her chronic leg pain. Will place her on Mucinex for her cough. She is ambulatory in department - Vital Signs Vital signs: Temp Pulse Resp BP Pulse Ox 97.6 F 84 20 178/89 H 100 08/16/19 05:38 08/16/19 05:38 08/16/19 06:39 08/16/19 06:39 08/16/19 06:39 - Laboratory Laboratory results interpreted by me: 08/16/19 05:39 Urine Urobilinogen 2.0 H Discharge - Discharge Clinical Impression: Chronic pain of left knee, Upper respiratory infection, viral Condition: Stable Disposition: HOME, SELF-CARE Instructions: Upper Respiratory Illness ([facility]) Additional Instructions: Take Mucinex consistently for coughing. Naproxen for knee pain. Follow-up with primary care provider for reevaluation of symptoms call for appointment. Stop smoking Prescriptions: Guaifenesin/Dextromethorphan [Mucinex Dm ER 600-30 mg Tablet] 1 each PO BID #10 tab.er.12h Naproxen 500 mg PO BID PRN #14 tablet PRN Reason: Referrals: FRANTZ ZAMORA, [employer]ICER [Primary Care Provider] - Follow up as needed
--- NOTE | 2019-08-16 10:13 | RADIOLOGY REPORT (SQ) ---
EXAM DESCRIPTION: CHEST 2 VIEWS COMPLETED DATE/TIME: 08/16/2019 9:59 am REASON FOR STUDY: cough COMPARISON: 06/22/2019 EXAM PARAMETERS: NUMBER OF VIEWS: two views TECHNIQUE: Digital Frontal and Lateral radiographic views of the chest acquired. RADIATION DOSE: NA LIMITATIONS: none FINDINGS: LUNGS AND PLEURA: No opacities, masses or pneumothorax. No pleural effusion. MEDIASTINUM AND HILAR STRUCTURES: No masses or contour abnormalities. HEART AND VASCULAR STRUCTURES: Heart normal size. No evidence for failure. BONES: No acute findings. HARDWARE: None in the chest. OTHER: No other significant finding. IMPRESSION: NO ACUTE RADIOGRAPHIC FINDING IN THE CHEST. TECHNICAL DOCUMENTATION: JOB ID: [id number] [employer]- All Rights Reserved Reading location - IP/workstation name: [email or web address]
--- NOTE | 2019-08-16 10:42 | RADIOLOGY REPORT (SQ) ---
EXAM DESCRIPTION: KNEE LEFT 4 VIEW COMPLETED DATE/TIME: 08/16/2019 8:59 am REASON FOR STUDY: pain COMPARISON: None. NUMBER OF VIEWS: Four views. TECHNIQUE: AP, lateral, and both oblique radiographic images acquired of the left knee. LIMITATIONS: None. FINDINGS: MINERALIZATION: Normal. BONES: No acute fracture or cortical destruction. Bony spurring of the tibial spines and small alessandro nal osteophytes. Minimal joint space narrowing. JOINT: No joint effusion. No intra-articular loose body. SOFT TISSUES: No soft tissue swelling. No radio-opaque foreign body. OTHER: No other significant finding. IMPRESSION: Mild tricompartmental osteoarthritis of the left knee. No acute fracture or dislocation . TECHNICAL DOCUMENTATION: JOB ID: [id number] [email or web address]- All Rights Reserved Reading location - IP/workstation name: [email or web address]
[2019-08-16 12:20] VITALS: BP 169/100
== END 2019-08-16 12:17 | disposition home or self-care (01) ==
LOC: ER 05:25
DX: G89.29 Other chronic pain (principal); M25.562 Pain in left knee; J06.9 Acute upper respiratory infection, unspecified; F17.200 Nicotine dependence, unspecified, uncomplicated; I10 Essential (primary) hypertension
CPT/HCPCS: 71046; 81001; 81025; 99283

== ENCOUNTER → 2019-08-20 | Outpatient (CLI) | payer MEDICARE, MEDICAID ==
--- NOTE | 2019-08-20 17:14 | EKG REPORT ---
SEVERITY:- ABNORMAL ECG - SINUS RHYTHM PROBABLE LEFT ATRIAL ABNORMALITY PROBABLE LEFT VENTRICULAR HYPERTROPHY : Confirmed by: Krystal He MD 20-Aug-2019 17:14:14
[2019-08-20 17:21] LABS: AMORPHOUS SEDIMENT,URINE TRACE /HPF; APPEARANCE,URINE SLIGHTLY-CLOUDY; BILIRUBIN,URINE NEGATIVE (NEGATIVE); COLOR,URINE YELLOW; GLUCOSE, URINE NEGATIVE (NEGATIVE); KETONES,URINE NEGATIVE (NEGATIVE); LEUKOCYTE ESTERASE,URINE TRACE (NEGATIVE); NITRITE,URINE NEGATIVE (NEGATIVE); PROTEIN,URINE NEGATIVE (NEGATIVE); URINE SPECIFIC GRAVITY 1.025
[2019-08-20 17:26] LABS: ABSOLUTE BASOPHILS # (AUTO) 0.1 10^3/uL (0.0-0.2); ABSOLUTE EOSINOPHILS # (AUTO) 0.3 10^3/uL (0.0-0.6); ABSOLUTE LYMPHOCYTES (AUTO) 2.5 10^3/uL (0.5-4.7); ABSOLUTE MONOCYTES (AUTO) 0.5 10^3/uL (0.1-1.4); ABSOLUTE NEUT (AUTO) 8.3 10^3/uL (1.7-8.2); BASOPHILS % (AUTO) 0.5 % (0-2); EOSINOPHILS % (AUTO) 2.4 % (0-6); HEMATOCRIT 33.4 % (36.0-47.0); LYMPHOCYTES % (AUTO) 21.2 % (13-45); MEAN CORPUSCULAR HEMOGLOBIN 29.3 pg (27.0-33.4); MEAN CORPUSCULAR HGB CONC 33.1 g/dL (32.0-36.0); MEAN CORPUSCULAR VOLUME 89 fl (80-97); MONOCYTES % (AUTO) 4.7 % (3-13); PLATELET COUNT 325 10^3/uL (150-450); RED BLOOD COUNT 3.77 10^6/uL (3.72-5.28); RED CELL DISTRIBUTION WIDTH 14.9 % (11.5-14.0); SEGMENTED NEUTROPHILS % (AUTO) 71.2 % (42-78); TOTAL CELLS COUNTED % (AUTO) 100 %; WHITE BLOOD COUNT 11.7 10^3/uL (4.0-10.5)
[2019-08-20 18:05] LABS: ALBUMIN 3.4 g/dL (3.5-5.0); ALKALINE PHOSPHATASE 63 U/L (38-126); ANION GAP 8 (5-19); ASPARTATE AMINO TRANSFERASE 29 U/L (14-36); BILIRUBIN,DIRECT 0.2 mg/dL (0.0-0.4); BILIRUBIN,TOTAL 0.3 mg/dL (0.2-1.3); BLOOD UREA NITROGEN 15 mg/dL (7-20); CALCIUM 8.7 mg/dL (8.4-10.2); CARBON DIOXIDE 27 mmol/L (22-30); CHLORIDE 105 mmol/L (98-107); GLUCOSE 76 mg/dL (75-110); TOTAL PROTEIN 6.5 g/dL (6.3-8.2)
[2019-08-23 12:09] LABS: TESTOSTERONE FREE (DIRECT) 2.7 pg/mL (0.0-4.2)
== END ==
LOC: OD 16:06
PROVIDERS: ATTEND Nurse Practitioner Family
DX: I10 Essential (primary) hypertension (principal); N92.6 Irregular menstruation, unspecified; R01.1 Cardiac murmur, unspecified; E66.01 Morbid (severe) obesity due to excess calories
CPT/HCPCS: 36415; 80053; 81001; 83036; 84402; 84403; 84443; 84703; 85025; 93005; 93010